=== PATIENT | male | born 1980 | race Caucasian/White ===

== ENCOUNTER 2017-11-02 13:37 | Emergency (ER) | payer OTHER ==
[2017-11-02 14:00] VITALS: RESP 18; TEMP 97.7
[2017-11-02 14:42] LABS: Basophils # (A) 0.1 k/uL (0-0.2); Basophils % (A) 1 %; Eosinophils # (A) 0.3 k/uL (0-0.7); Eosinophils % (A) 3 %; HCT 43.5 % (39.0-53.0); HGB 14.8 gm/dL (13.0-17.5); Lymphocytes # (A) 1.3 k/uL (1.0-4.8); Lymphocytes % (A) 14 %; MCH 29.8 pg (25.0-35.0); MCHC 33.9 g/dL (31.0-37.0); MCV 87.9 fL (80.0-100.0); Mean Platelet Volume 7.7; Monocytes # (A) 0.3 k/uL (0-1.0); Monocytes % (A) 4 %; Neutrophils # (A) 6.8 k/uL (1.3-7.7); Neutrophils % (A) 77 %; Platelet Count 250 k/uL (150-450); RBC 4.95 m/uL (4.30-5.90); RDW 13.5 % (11.5-15.5); WBC 8.9 k/uL (3.8-10.6)
[2017-11-02 14:53] LABS: ALT 43 U/L (21-72); AST 39 U/L (17-59); Alkaline Phosphatase 71 U/L (38-126); Amylase 55 U/L (30-110); Anion Gap 13 mmol/L; Blood Urea Nitrogen 16 mg/dL (9-20); Calcium 9.4 mg/dL (8.4-10.2); Carbon Dioxide 25 mmol/L (22-30); Chloride 106 mmol/L (98-107); Glucose 103 mg/dL (74-99); Lipase 81 U/L (23-300); Potassium 4.3 mmol/L (3.5-5.1); Sodium 144 mmol/L (137-145); Total Bilirubin 0.4 mg/dL (0.2-1.3); Total Protein 7.1 g/dL (6.3-8.2)
[2017-11-02] MEDS ORDERED: METOCLOPRAMIDE 5 MG/ML 2 ML VIAL IVP STA (16:03)
[2017-11-02] MEDS ORDERED: KETOROLAC 30 MG/ML 1 ML VIAL IVP STA (16:03)
[2017-11-02] MEDS ORDERED: diphenhydrAMINE 50 MG/ML 1 ML VIAL IVP STA (16:03)
[2017-11-02] MEDS ORDERED: SODIUM CHLORIDE 0.9% 1,000 ML IV STA (16:03)
--- NOTE | 2017-11-02 16:21 | ED ---
General Adult HPI - General Chief complaint: Nausea/Vomiting/Diarrhea Stated complaint: Migraine Time Seen by Provider: 11/02/17 15:49 Source: patient, RN notes reviewed Mode of arrival: ambulatory Limitations: no limitations - History of Present Illness Initial comments: Patient 37-year-old male significant past medical history for migraines, presents emergency room today with a chief complaint of a migraine headache that started this morning. He does not that this migraines located upfront. He states there is some radiation to the back of his head and also states there is photosensitivity. There is a symptoms of nausea vomiting. He states his symptoms are all consistent with migraines is had in the past but this is more intense. Patient denies any new symptoms associated with this migraine. He denies any other complaints at this time. Patient denies any recent fever, chills, shortness of breath, chest pain, back pain, abdominal pain, dysuria or hematuria, constipation or diarrhea, visual changes, or any other complaints. - Related Data Home Medications Medication Instructions Recorded Confirmed Aspirin EC [Ecotrin] 325 mg PO DAILY PRN 11/02/17 11/02/17 Multivitamins, Thera [Multivitamin 1 tab PO DAILY 11/02/17 11/02/17 (formulary)] Allergies Allergy/AdvReac Type Severity Reaction Status Date / Time shellfish derived Allergy Swelling Verified 11/02/17 15:59 Review of Systems ROS Statement: Those systems with pertinent positive or pertinent negative responses have been documented in the HPI. ROS Other: All systems not noted in ROS Statement are negative. Past Medical History Past Medical History: Hyperlipidemia, Hypertension, Myocardial Infarction ([place]) Additional Past Medical History / Comment(s): hypoglycemia, diverticulitis, patient states he had an NV at 24 and one at 30 History of Any Multi-Drug Resistant Organisms: None Reported Past Surgical History: No Surgical Hx Reported Past Psychological History: Bipolar, Schizoaffective Disorder Smoking Status: Never smoker Past Alcohol Use History: None Reported Past Drug Use History: None Reported General Exam - General Exam Comments Initial Comments: General: The patient is awake and alert, in no distress, and does not appear acutely ill. Eye: Pupils are equal, round and reactive to light, extra-ocular movements are intact. No nystagmus. There is normal conjunctiva bilaterally. No signs of icterus. Ears, nose, mouth and throat: There are moist mucous membranes and no oral lesions. Neck: The neck is supple, there is no tenderness or JVD. Cardiovascular: There is a regular rate and rhythm. No murmur, rub or gallop is appreciated. Respiratory: Lungs are clear to auscultation, respirations are non-labored, breath sounds are equal. No wheezes, stridor, rales, or rhonchi. Gastrointestinal: Soft, non-distended, non-tender abdomen without masses or organomegaly noted. There is no rebound or guarding present. No CVA tenderness. Musculoskeletal: Normal ROM, no tenderness. Strength 5/5. Sensation intact. Pulses equal bilaterally 2+. Neurological: A&O x 3. CN II-XII intact, There are no obvious motor or sensory deficits. Coordination appears grossly intact. Speech is normal. Skin: Skin is warm and dry and no rashes or lesions are noted. Psychiatric: Cooperative, appropriate mood & affect, normal judgment. Limitations: no limitations Course Vital Signs 11/02/17 13:54 Temperature 97.7 F Pulse Rate 84 Respiratory 18 Rate Blood Pressure 133/88 O2 Sat by Pulse 99 Oximetry Medical Decision Making - Medical Decision Making Patient's reexamined at this time shows no signs of distress. Sleeping. Did wake the patient up he states his headache is completely gone is feeling much better patient will be discharged home is advised to use ibuprofen for a rebound headache. - Lab Data Result diagrams: 11/02/17 14:15 11/02/17 14:15 Lab Results 11/02/17 11/02/17 Range/Units 14:15 14:15 WBC 8.9 (3.8-10.6) k/uL RBC 4.95 (4.30-5.90) m/uL Hgb 14.8 (13.0-17.5) gm/dL Hct 43.5 (39.0-53.0) % MCV 87.9 (80.0-100.0) fL MCH 29.8 (25.0-35.0) pg MCHC 33.9 (31.0-37.0) g/dL RDW 13.5 (11.5-15.5) % Plt Count 250 (150-450) k/uL Neutrophils % 77 % Lymphocytes % 14 % Monocytes % 4 % Eosinophils % 3 % Basophils % 1 % Neutrophils # 6.8 (1.3-7.7) k/uL Lymphocytes # 1.3 (1.0-4.8) k/uL Monocytes # 0.3 (0-1.0) k/uL Eosinophils # 0.3 (0-0.7) k/uL Basophils # 0.1 (0-0.2) k/uL Sodium 144 (137-145) mmol/L Potassium 4.3 (3.5-5.1) mmol/L Chloride 106 (98-107) mmol/L Carbon Dioxide 25 (22-30) mmol/L Anion Gap 13 mmol/L BUN 16 (9-20) mg/dL Creatinine 0.90 (0.66-1.25) mg/dL Est GFR (CKD-EPI)AfAm >90 (>60 ml/min/1.73 sqM) Est GFR (CKD-EPI)NonAf >90 (>60 ml/min/1.73 sqM) Glucose 103 H (74-99) mg/dL Calcium 9.4 (8.4-10.2) mg/dL Total Bilirubin 0.4 (0.2-1.3) mg/dL AST 39 (17-59) U/L ALT 43 (21-72) U/L Alkaline Phosphatase 71 (38-126) U/L Total Protein 7.1 (6.3-8.2) g/dL Albumin 4.0 (3.5-5.0) g/dL Amylase 55 (30-110) U/L Lipase 81 (23-300) U/L Disposition Clinical Impression: Migraine Disposition: HOME SELF-CARE Condition: Good Instructions: Migraine Headache (ED) Additional Instructions: Please use ibuprofen for any rebound headaches. Please follow-up with family doctor in the next 2 days of symptoms have not improved. Please return to emergency room if the symptoms increase or worsen or for any other concerns. Referrals: None,Stated [Primary Care Provider] - 1-2 days Time of Disposition: 17:27
[2017-11-02 17:43] VITALS: BP 111/60; PULSE 60
== END 2017-11-02 17:47 | disposition home or self-care (01) ==
LOC: EC 13:37
DX: G43.909 Migraine, unspecified, not intractable, without status migrainosus (principal); Z79.899 Other long term (current) drug therapy; Z91.013 Allergy to seafood
CPT/HCPCS: 36415; 93005; 80053; 82150; 83690; 85025; 99284; 96374; 96375 ×2; 96361; J1200; J2765; J1885

== ENCOUNTER 2018-05-23 13:50 | Emergency (ER) | payer BC ==
[2018-05-23] MEDS ORDERED: SODIUM CHLORIDE 0.9% 1,000 ML IV STA (14:31)
[2018-05-23] MEDS ORDERED: METOCLOPRAMIDE 5 MG/ML 2 ML VIAL IVP STA (14:31)
[2018-05-23] MEDS ORDERED: diphenhydrAMINE 50 MG/ML 1 ML VIAL IVP STA (14:31)
--- NOTE | 2018-05-23 15:16 | CT ---
EXAMINATION TYPE: CT brain wo con DATE OF EXAM: 05/23/2018 COMPARISON: None INDICATION: Migrane today DLP: 1215.4 mGycm, Automated exposure control for dose reduction was used. CONTRAST: None CT of the brain is performed utilizing 3 mm thick sections through the posterior fossa and 3 mm thick sections through the remaining calvarium. Study is performed within 24 hours of arrival to the hosp [facility]. No abnormal hyperdensity is present to suggest an acute intracranial hemorrhage. No mass lesion is evident. No acute infarcts are evident. Ventricles and sulci are appropriate for the patient age. Mucosal thickening is within the right maxillary sinus and within some right ethmoid air cells. No lozada spicious air-fluid levels are present. Remaining paranasal sinuses mastoid air cells are clear. IMPRESSIONS: 1. No acute intracranial process. 2. Mild paranasal sinus mucosal thickening
--- NOTE | 2018-05-23 15:31 | ED ---
General Adult HPI - General Chief complaint: Headache Stated complaint: Migraine, Nausea Time Seen by Provider: 05/23/18 14:24 Source: patient, RN notes reviewed, old records reviewed Mode of arrival: ambulatory Limitations: no limitations - History of Present Illness Initial comments: 38-year-old male presents for evaluation of headache. Patient woke this morning with bilateral occipital and frontal headache. Patient does have headache history, she gets headaches that some frequency although not as severe as today's headache. Headache has been present for 2 hours at the time of my evaluation. He also reports nausea and vomiting as well as photophobia. Denies focal numbness or weakness. Patient has no family history of brain aneurysm. He is otherwise healthy. - Related Data Home Medications Medication Instructions Recorded Confirmed Ibuprofen [Motrin Ib] 600 mg PO Q6H PRN 05/23/18 05/23/18 Allergies Allergy/AdvReac Type Severity Reaction Status Date / Time shellfish derived Allergy Swelling Verified 05/23/18 14:37 Review of Systems ROS Statement: Those systems with pertinent positive or pertinent negative responses have been documented in the HPI. ROS Other: All systems not noted in ROS Statement are negative. Past Medical History Past Medical History: Hyperlipidemia, Hypertension, Myocardial Infarction ([place]) Additional Past Medical History / Comment(s): hypoglycemia, diverticulitis, patient states he had an ME at 24 and one at 30 History of Any Multi-Drug Resistant Organisms: None Reported Past Surgical History: No Surgical Hx Reported Past Psychological History: Bipolar, Schizoaffective Disorder Smoking Status: Never smoker Past Alcohol Use History: None Reported Past Drug Use History: None Reported General Exam Limitations: no limitations General appearance: alert, in no apparent distress Head exam: Present: atraumatic, normocephalic Eye exam: Present: normal appearance, PERRL, EOMI ENT exam: Present: normal exam Neck exam: Present: normal inspection. Absent: tenderness, meningismus Respiratory exam: Present: normal lung sounds bilaterally. Absent: respiratory distress, wheezes Cardiovascular Exam: Present: regular rate, normal rhythm GI/Abdominal exam: Present: soft. Absent: distended, tenderness, guarding Extremities exam: Present: normal inspection, full ROM. Absent: normal capillary refill Neurological exam: Present: alert, oriented X3, CN II-XII intact. Absent: motor sensory deficit Psychiatric exam: Present: normal affect, normal mood Skin exam: Present: warm, dry, intact. Absent: cyanosis, diaphoretic Course Vital Signs 05/23/18 13:53 Temperature 98.3 F Pulse Rate 69 Respiratory 16 Rate Blood Pressure 136/79 O2 Sat by Pulse 97 Oximetry - Reevaluation(s) Reevaluation #1: 05/23/18 15:30 Patient reevaluated after medical treatment headache, is feeling much better. Medical Decision Making - Medical Decision Making 38-year-old male with 2 hour history of headache. Patient woke with his symptoms, states this is more severe than his typical headache. Head CT is obtained which is negative for intracranial hemorrhage or mass effect. Patient reevaluated after IV fluids, Reglan, and Benadryl, he is feeling much better. Patient is eager for discharge. Disposition Clinical Impression: Headache Disposition: HOME SELF-CARE Condition: Good Instructions: Acute Headache (ED) Is patient prescribed a controlled substance at d/c from ED?: No Referrals: None,Stated [Primary Care Provider] - 1-2 days Vincent Montalvo MD [STAFF PHYSICIAN] - 1-2 days Time of Disposition: 16:02
[2018-05-23 16:29] VITALS: BP 125/92; PULSE 57; RESP 18; TEMP 98.2
== END 2018-05-23 16:28 | disposition home or self-care (01) ==
LOC: EC 13:50
DX: R51 Headache (principal); R11.2 Nausea with vomiting, unspecified; H53.149 Visual discomfort, unspecified; Z91.013 Allergy to seafood
CPT/HCPCS: 70450; 99284; 96374; 96375; 96361; J1200; J2765

== ENCOUNTER 2018-08-02 04:35 | Inpatient (IN) | payer BC ==
[2018-08-02] MEDS ORDERED: VANCOMYCIN IV PER PHARMACY 1 EACH MISC MISCELLANE PRN (05:02)
[2018-08-02] MEDS ORDERED: CLINDAMYCIN 900 MG in DEXTROSE 5% IN WATER 50 ML IVPB STA ×2 (05:05)
[2018-08-02] MEDS ORDERED: PIPERACILLIN-TAZOBACTAM 3.375 GM in SODIUM CHLORIDE 0.9% 100 ML IVPB STA (05:05)
[2018-08-02] MEDS ORDERED: VANCOMYCIN 2,000 MG in SODIUM CHLORIDE 0.9% 500 ML 500 ML IVPB STA (05:06)
[2018-08-02] MEDS: SODIUM CHLORIDE 0.9% 500 ML 500 ML IV SCH ×2 (05:26→06:21)
[2018-08-02 05:45] LABS: Basophils % (A) 0 %; Eosinophils # (A) 0.5 k/uL (0-0.7); Eosinophils % (A) 5 %; HCT 39.7 % (39.0-53.0); HGB 13.2 gm/dL (13.0-17.5); Lymphocytes # (A) 1.8 k/uL (1.0-4.8); Lymphocytes % (A) 18 %; MCH 29.6 pg (25.0-35.0); MCHC 33.2 g/dL (31.0-37.0); MCV 89.2 fL (80.0-100.0); Mean Platelet Volume 7.3; Monocytes # (A) 0.5 k/uL (0-1.0); Monocytes % (A) 5 %; Neutrophils # (A) 6.9 k/uL (1.3-7.7); Neutrophils % (A) 69 %; Platelet Count 232 k/uL (150-450); RBC 4.45 m/uL (4.30-5.90); RDW 13.3 % (11.5-15.5); WBC 10.1 k/uL (3.8-10.6)
[2018-08-02 05:54] LABS: INR 0.9 (<1.2); Partial Thromboplastin Time 24.8 sec (22.0-30.0); Prothrombin Time 9.8 sec (9.0-12.0)
[2018-08-02 06:01] LABS: ALT 36 U/L (21-72); AST 46 U/L (17-59); Albumin 3.8 g/dL (3.5-5.0); Alkaline Phosphatase 68 U/L (38-126); Anion Gap 9 mmol/L; Blood Urea Nitrogen 16 mg/dL (9-20); Calcium 8.9 mg/dL (8.4-10.2); Carbon Dioxide 21 mmol/L (22-30); Chloride 109 mmol/L (98-107); Glucose 88 mg/dL (74-99); Sodium 139 mmol/L (137-145); Total Bilirubin 0.9 mg/dL (0.2-1.3); Total Protein 7.3 g/dL (6.3-8.2)
[2018-08-02 06:10] LABS: Potassium 5.2 mmol/L (3.5-5.1)
--- NOTE | 2018-08-02 06:29 | CT ---
EXAM: CT Pelvis With Intravenous Contrast. CLINICAL HISTORY: Reason: Penile trauma/infection TECHNIQUE: Axial computed tomography images of the pelvis with intravenous contrast. CTDI is 28.4 mGy and DLP is 1652 mGy-cm. This CT exam was performed using one or more of the following dose reduction techniques: automated exposure control, adjustment of the mA and/or kV according to patient size, and/or use of iterative reconstruction technique. COMPARISON: No relevant prior studies available. FINDINGS: Bowel: Unremarkable. No obstruction. No mucosal thickening. Appendix: No findings to suggest acute appendicitis. Bladder: Unremarkable. No mass. Reproductive: Infiltrative changes seen regional to the base of the penis, anterior perineum and scrotum, with subcutaneous fat stranding and mild soft tissue swelling. No soft tissue gas. No loculated fluid collection. Lymph nodes: Unremarkable. No enlarged lymph nodes. Vasculature: Unremarkable. No distal aortic aneurysm. Bones: No acute fracture. IMPRESSION: Soft tissue swelling and subcutaneous fat stranding involving the base of the penis, anterior perineum and scrotum, without evidence of soft tissue gas or underlying loculated fluid collection. Given history of trauma, findings could represent soft tissue contusion. Alternatively this may represent an infectious cellulitis.
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
[2018-08-02 06:51] LABS: Appearance,Urine Clear (Clear); Bilirubin,Urine Negative (Negative); Blood,Urine Negative (Negative); Color,Urine Yellow; Glucose,Urine (UA) Negative (Negative); Ketones,Urine Negative (Negative); Leukocyte Esterase,Urine Negative (Negative); Nitrite,Urine Negative (Negative); Protein,Urine Trace (Negative); Urobilinogen,Urine <2.0 mg/dL (<2.0)
[2018-08-02 06:56] LABS: Specific Gravity,Urine >1.050 (1.001-1.035)
--- NOTE | 2018-08-02 12:04 | P.HPIM ---
History of Present Illness Chief Complaint: swelling around his penis and scrotum this is a 38-year-old male no past medical history who complained of swelling of his scrotum and around his base of the penis. 2 days prior to admission he sustained injury to his penis while having sex with his . The injury was in the form of small abrasions along the base of the penis and surrounding skin. There is no any significant laceration or bleeding. On the day of the admission 2 days after sustaining these injuries the area became warm erythematosus, tender and the skin and the scrotal area swell. He denies any fever or chills. There was no any darkening or sloughing of the skin there was no blistering. There was no any purulence. There is no any penile discharge In the emergency department he was found to be afebrile with stable vital signs. Vital cell count was normal. CT of the pelvis showed some soft tissue swelling in the scrotal area consistent with contusion less likely cellulitis. Patient was started on broad-spectrum antibiotic and admitted as a working diagnosis of cellulitis. He was evaluated by urology service and they felt that he should stay here overnight for antibiotics. Currently looks like that he is erythema and swelling has been improving rapidly with antibiotics and is much better comparing to last night.currently he does show some swelling in the area but there is no any tenderness erythema is minimal and there is no nasal discharge or blistering. Review of Systems Constitutional: Patient reports no fever, no chills, no weight changes, no change in appetite Eyes: Patient reports no double vision, no visual changes ENT: Patient reports no rhinorrhea, no post nasal drip, no sore throat Cardiovascular: Patient reports no chest, no edema, no palpitations, no syncope , no orthopnea, no paroxysmal nocturnal dyspnea. Respiratory: Patient reports no dyspnea, no cough, no wheeze Gastrointestinal: Patient reports no nausea, no vomiting, no constipation, no diarrhea Genitourinary: Patient reports no dysuria, no urinary frequency, no hematuria. Musculoskeletal: Patient reports no unusual joint pain, no joint swelling or weakness. Patient reports no muscular pain. Psychiatric: Patient reports no changes in mood, no sleeping problems. Patient reports no changes in memory. Endocrine: Patient reports no thirst, no polyuria, no cold intolerance, no heat intolerance. Neurological: Patient reports no unusual paresthesias, no seizures, no paresis , no paralysis, no facila droop, no headache. Heme/Lymphatic: Patient reports no easy bruising, no bleeding tendency, no lymphadenopathy. Allergic/ Immunologic: Patient reports no recent allergic reactions or immunologic history. Skin: Patient reports no rashes or unusual lesions. Past Medical History Past Medical History: Hyperlipidemia, Hypertension, Myocardial Infarction ([place]) Additional Past Medical History / Comment(s): hypoglycemia, diverticulitis, patient states he had an [place] at 24 and one at 30 History of Any Multi-Drug Resistant Organisms: None Reported Past Surgical History: No Surgical Hx Reported Past Psychological History: Bipolar, Schizoaffective Disorder, Schizophrenia Smoking Status: Never smoker Past Alcohol Use History: None Reported Past Drug Use History: None Reported Medications and Allergies Home Medications Medication Instructions Recorded Confirmed Type Ibuprofen [Motrin Ib] 600 mg PO Q6H PRN 05/23/18 08/02/18 History Allergies Allergy/AdvReac Type Severity Reaction Status Date / Time shellfish derived Allergy Swelling Verified 08/02/18 08:17 Physical Exam Vitals: Vital Signs Temp Pulse Resp BP Pulse Ox 08/02/18 09:51 98 F 71 16 126/88 98 08/02/18 08:14 18 08/02/18 04:45 98.7 F 78 18 139/92 97 Intake and Output 08/01/18 08/02/18 08/02/18 22:59 06:59 14:59 Other: Weight 126.099 kg Vital Signs: I have reviewed the vital signs. GENERAL: no apparent distress, cooperative, up in bed feeling comfortable Eyes: PERRL, extraoculry movements intact, clear conjunctiva Head: : Atraumatic external nose and ears, oropharyngeal mucosa is moist without lesions or exudates Neck: Symmetric, trachea midline, No thyromegaly, no masses or neck vain pulsation, no neck rigidity CVS: +S1/S2, No murmurs or gallops. Peripheral pulses 2+ and equal in all extremities. RESP: Unlabored respiratory effort. Clear to auscultation bilaterally. Abdomen: Bowel sounds present in all 4 quadrants, Soft to palpation, Nontender/ Nondistended, No hepatosplenomegaly, no hernias or masses, no CVA tnderness Genitourinary: Penis is not swallen, no erythema or deformities. Skin has few dried out small abrasions in the base but overall without blisters or gangrenous changes or discoloration. Skin around base of penis shows mild erythema extending about 1 cm rostrally, again no necrotic areas no tendrness or warmth. Scrotal area skin is without erythema or blisters or necrotic chnages. Scrotum per se is edematous bu no warmth or significant tenderness, no crepitations, no bruising. No regional LAD. No penile discharge Musculoskeletal: Extremities w/o deformity, No cyanosis or clubbing, no joint swelling Results CBC & Chem 7: 08/02/18 05:25 08/02/18 05:25 Labs: Abnormal Lab Results - Last 24 Hours (Table) 08/02/18 08/02/18 Range/Units 05:25 06:20 Potassium 5.2 H (3.5-5.1) mmol/L Chloride 109 H (98-107) mmol/L Carbon Dioxide 21 L (22-30) mmol/L Ur Specific [place] >1.050 H (1.001-1.035) Urine Protein Trace H (Negative) Microbiology - Last 24 Hours (Table) 08/02/18 06:20 Urine Culture - Preliminary Urine,Voided Assessment and Plan Assessment: 1. Penile trauma 2. Soft tissue contusion 3. Possible cellulitis 4. Mild Hyperkalemia at 5.2 Area seems quite improved from what described before. Pt is feeling much better and pain improved. Given rapid spread of redness via small abrasion and absence of purulence this could represent streptococcal infection. Pt is not diabetic and its low risk for Pseudomonas. There is no purulence or drainage. Symptoms are improving rapidly with antibiotics. Plan: Change antibiotics to Cefazolin Urology consalt Local care Elevate scrotum Cooling packs PRN Pain ctrl Monitor for any difficulties with urination Will reevaluate
[2018-08-02 12:30] LABS: Anion Gap 7 mmol/L; Blood Urea Nitrogen 13 mg/dL (9-20); Calcium 8.5 mg/dL (8.4-10.2); Carbon Dioxide 24 mmol/L (22-30); Chloride 109 mmol/L (98-107); Glucose 91 mg/dL (74-99); Potassium 4.4 mmol/L (3.5-5.1); Sodium 140 mmol/L (137-145)
[2018-08-02] MEDS ORDERED: CLINDAMYCIN 900 MG in DEXTROSE 5% IN WATER 50 ML IVPB SCH ×2 (13:00)
[2018-08-02] MEDS ORDERED: PIPERACILLIN-TAZOBACTAM 3.375 GM in SODIUM CHLORIDE 0.9% 100 ML IVPB SCH (16:00)
[2018-08-02] MEDS: ceFAZolin IN SWFI 2 GM/20 ML SYRINGE IVP SCH (16:53)
[2018-08-02] MEDS ORDERED: VANCOMYCIN 2,250 MG in SODIUM CHLORIDE 0.9% 500 ML 500 ML IVPB SCH (18:00)
--- NOTE | 2018-08-02 22:20 | P.GSCN ---
History of Present Illness Consult date: 08/02/18 Reason for Consult: Penoscrotal cellulitis Requesting physician: Suri Lopez History of present illness: The patient is a 38-year-old white male who was wrestling with his on 07/29. She grabbed his penis, and he subsequently noted that he was bleeding from a laceration at the right penile base. He applied antibiotic cream throughout the week. However, yesterday he noted significant penoscrotal swelling and presented to the emergency room. A computed tomography scan shows soft tissue swelling and subcutaneous fat stranding within the penoscrotal region. No gas or fluid collection was seen. He is admitted for IV antibiotics. Review of Systems - Constitutional Denies chills, Denies fever - Cardiovascular Denies chest pain - Respiratory Denies dyspnea - Gastrointestinal Denies nausea, Denies vomiting - Genitourinary Denies dysuria, Denies hematuria Past Medical History Past Medical History: Hyperlipidemia, Hypertension, Myocardial Infarction ([place]) Additional Past Medical History / Comment(s): hypoglycemia, diverticulitis, patient states he had an [place] at 24 and one at 30 History of Any Multi-Drug Resistant Organisms: None Reported Past Surgical History: No Surgical Hx Reported Past Psychological History: Bipolar, Schizoaffective Disorder, Schizophrenia Smoking Status: Never smoker Past Alcohol Use History: None Reported Past Drug Use History: None Reported Medications and Allergies Home Medications Medication Instructions Recorded Confirmed Type Ibuprofen [Motrin Ib] 600 mg PO Q6H PRN 05/23/18 08/02/18 History Allergies Allergy/AdvReac Type Severity Reaction Status Date / Time shellfish derived Allergy Swelling Verified 08/02/18 08:17 Surgical - Exam Vital Signs Temp Pulse Resp BP Pulse Ox 98.7 F 78 18 139/92 97 08/02/18 04:45 08/02/18 04:45 08/02/18 04:45 08/02/18 04:45 08/02/18 04:45 - General well developed, well nourished, no distress - Respiratory normal respiratory effort - Abdomen Abdomen: soft, non tender, no guarding, no rigid, no rebound - Genitourinary Moderate penoscrotal edema is noted. The testes are palpably normal. The laceration at the right penile base is healing, with no wound separation or drainage. Patchy spots of what appears to be ecchymosis are noted on the scrotum, penis, and infrapubic region. There is no crepitus or fluctuance. Results - Labs 08/02/18 05:25 08/02/18 11:57 Abnormal Lab Results - Last 24 Hours (Table) 08/02/18 08/02/18 Range/Units 05:25 06:20 Potassium 5.2 H (3.5-5.1) mmol/L Chloride 109 H (98-107) mmol/L Carbon Dioxide 21 L (22-30) mmol/L Ur Specific [place] >1.050 H (1.001-1.035) Urine Protein Trace H (Negative) Microbiology - Last 24 Hours (Table) 08/02/18 06:20 Urine Culture - Preliminary Urine,Voided Diabetes panel 08/02/18 Range/Units 05:25 Sodium 139 (137-145) mmol/L Potassium 5.2 H (3.5-5.1) mmol/L Chloride 109 H (98-107) mmol/L Carbon Dioxide 21 L (22-30) mmol/L BUN 16 (9-20) mg/dL Creatinine 1.06 (0.66-1.25) mg/dL Glucose 88 (74-99) mg/dL Calcium 8.9 (8.4-10.2) mg/dL AST 46 (17-59) U/L ALT 36 (21-72) U/L Alkaline Phosphatase 68 (38-126) U/L Total Protein 7.3 (6.3-8.2) g/dL Albumin 3.8 (3.5-5.0) g/dL Calcium panel 08/02/18 Range/Units 05:25 Calcium 8.9 (8.4-10.2) mg/dL Albumin 3.8 (3.5-5.0) g/dL Pituitary panel 08/02/18 Range/Units 05:25 Sodium 139 (137-145) mmol/L Potassium 5.2 H (3.5-5.1) mmol/L Chloride 109 H (98-107) mmol/L Carbon Dioxide 21 L (22-30) mmol/L BUN 16 (9-20) mg/dL Creatinine 1.06 (0.66-1.25) mg/dL Glucose 88 (74-99) mg/dL Calcium 8.9 (8.4-10.2) mg/dL Adrenal panel 08/02/18 Range/Units 05:25 Sodium 139 (137-145) mmol/L Potassium 5.2 H (3.5-5.1) mmol/L Chloride 109 H (98-107) mmol/L Carbon Dioxide 21 L (22-30) mmol/L BUN 16 (9-20) mg/dL Creatinine 1.06 (0.66-1.25) mg/dL Glucose 88 (74-99) mg/dL Calcium 8.9 (8.4-10.2) mg/dL Total Bilirubin 0.9 (0.2-1.3) mg/dL AST 46 (17-59) U/L ALT 36 (21-72) U/L Alkaline Phosphatase 68 (38-126) U/L Total Protein 7.3 (6.3-8.2) g/dL Albumin 3.8 (3.5-5.0) g/dL - Imaging CT scan - pelvis: report reviewed, image reviewed Assessment and Plan (1) Penile cellulitis Current Visit: Yes Status: Acute Code(s): N48.22 - CELLULITIS OF CORPUS CAVERNOSUM AND PENIS SNOMED Code(s): 13273106 Plan: I agree with hospitalization for broad-spectrum IV antibiotics. There is no need for local wound care. 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 The patient has received vancomycin, clindamycin, and Zosyn, but these have been discontinued and he is scheduled to receive Ancef moving forward. I am concerned that this may not offer adequate broad-spectrum coverage but ultimately will defer this decision to the primary medical service. I did advise the patient to notify the nursing staff immediately if he notes any worsening of his condition. Time with Patient: Greater than 30
[2018-08-03 00:10] VITALS: RESP 18
[2018-08-03] MEDS: ceFAZolin IN SWFI 2 GM/20 ML SYRINGE IVP SCH ×3 (00:52→15:11)
[2018-08-03 06:09] VITALS: BP 113/66; PULSE 77; TEMP 97.5
--- NOTE | 2018-08-03 11:53 | P.DS ---
Providers Date of admission: 08/02/18 06:49 Expected date of discharge: 08/03/18 Attending physician: Suri Lopez MD Consults: 08/02/18 08:44 Consult Physician Routine Consulting Provider: Carlos Churchill Consult Reason/Comments: penile trauma Do you want consulting provider notified?: Yes Primary care physician: Stated None Hospital Course: 38-year-old male no past medical history who presented to the ER for swelling of his scrotum and around his base of the penis. 2 days prior to admission he sustained injury to his penis while having sex with his . The injury was in the form of small abrasions along the base of the penis and surrounding skin. There is no any significant laceration or bleeding. On the day of the admission 2 days after sustaining these injuries the area became warm, red and tender. He denies any fever or chills. There was no any darkening or sloughing of the skin there was no blistering. There was no any purulence. There is no any penile discharge. In the emergency department he was found to be afebrile with stable vital signs. White cell count was normal. CT of the pelvis showed some soft tissue swelling in the scrotal area, consistent with contusion less likely cellulitis. Patient was started on broad-spectrum antibiotic and admitted as a working diagnosis of cellulitis. He was evaluated by urology service who didn't feel he needed any surgical intervention. When I evaluated him this am the area looks much better, no pain, swelling has gone down. He has been on ancef since yesterday. No overnight fevers. He will be discharged home in stable condition. He'll be prescribed some Keflex for a few more days. He was instructed to keep the area dry and clean. He was also told to follow with his primary care physician within few days after discharge. Plan - Discharge Summary New Discharge Prescriptions: New Cephalexin [Keflex] 500 mg PO Q6HR 3 Days #12 cap Continue Ibuprofen [Motrin Ib] 600 mg PO Q6H PRN PRN Reason: Pain Discharge Medication List Ibuprofen [Motrin Ib] 600 mg PO Q6H PRN 05/23/18 [History] Cephalexin [Keflex] 500 mg PO Q6HR 3 Days #12 cap 08/03/18 [Rx] Follow up Appointment(s)/Referral(s): None,Stated [Primary Care Provider] - 1-2 days
--- NOTE | 2018-08-03 12:40 | P.PN ---
Progress Note - Text Progress Note Date: 08/03/18 Mr. Vanegas feels better today. He remains afebrile with stable vital signs. Scrotal edema is diminished. The penoscrotal cutaneous lesions have dried and covered with small scabs. Minimal infrapubic erythema is noted. There is no crepitus or fluctuance. Moderate penile edema persists. It appears that Mr. Vanegas will be discharged home today on Keflex. I advised him to contact me immediately if he notes fever, crepitus, or worsening of his condition. He will otherwise follow up with me in approximately 1 week.
[2018-08-03 13:33] LABS: Anion Gap 8 mmol/L; Blood Urea Nitrogen 12 mg/dL (9-20); Carbon Dioxide 26 mmol/L (22-30); Chloride 106 mmol/L (98-107); Glucose 86 mg/dL (74-99); Potassium 4.8 mmol/L (3.5-5.1); Sodium 140 mmol/L (137-145)
== END 2018-08-03 15:53 | disposition home or self-care (01) | DRG 728 ==
LOC: EC 04:35 → 4MS4W 06:49
PROVIDERS: ADMIT Internal Medicine; ATTEND Internal Medicine
DX: N48.22 Cellulitis of corpus cavernosum and penis (principal); E87.5 Hyperkalemia; F25.0 Schizoaffective disorder, bipolar type; S30.812A Abrasion of penis, initial encounter; S30.22XA Contusion of scrotum and testes, initial encounter; I25.2 Old myocardial infarction; E78.5 Hyperlipidemia, unspecified; I10 Essential (primary) hypertension; Z91.013 Allergy to seafood; Z86.39 Personal history of other endocrine, nutritional and metabolic disease; Z87.19 Personal history of other diseases of the digestive system
CPT/HCPCS: 36415; 72193; 80048; 80053; 81003; 83605; 85025; 85610; 85652; 85730; 87040; 87086; 93005; 96361; 96365; 96366; 96368; 99285

== ENCOUNTER 2018-12-31 09:28 | Emergency (ER) | payer BC ==
[2018-12-31] MEDS ORDERED: KETOROLAC 30 MG/ML 1 ML VIAL IM STA (10:07)
--- NOTE | 2018-12-31 10:09 | ED ---
General Adult HPI - General Chief complaint: ENT Stated complaint: ENT Time Seen by Provider: 12/31/18 09:35 Source: patient Mode of arrival: ambulatory Limitations: no limitations - History of Present Illness Initial comments: Dictation was produced using [employer] dictation software. please excuse any grammatical, word or spelling errors. Chief Complaint: 38-year-old malesignificant comorbidities presents with sore throat and ear pain 2 days. History of Present Illness: Patient 38-year-old male presents with sore throat and ear pain 4 days. Patient has had history of otitis media in the past. He states his girlfriend had had similar symptoms. Patient states that denies any nasal congestion, runny nose. Denies any cough. Reports ear pain that's worse with manipulation of air. Denies any hearing loss. The ROS documented in this emergency department record has been reviewed and confirmed by me. Those systems with pertinent positive or negative responses have been documented in the HPI. All other systems are other negative and/or noncontributory. PHYSICAL EXAM: General Impression: Alert and oriented x3, not in acute distress HEENT: Normocephalic atraumatic, extra-ocular movements intact, pupils equal and reactive to light bilaterally, mucous membranes moist, slightly erythematous enlarged tonsils however no exudates or ulcers, mild cerumen in the right external auditory canal Cardiovascular: Heart regular rate and rhythm, S1&S2 audible, no murmurs, rubs or gallops Chest: Lungs clear to auscultation bilaterally, no rhonchi, no wheeze, no rales Abdomen: Bowel sounds present, abdomen soft, non-tender, non-distended, no organomegaly Musculoskeletal: Pulses present and equal in all extremities, no peripheral edema Motor: no focal deficits noted Neurological: CN II-XII grossly intact, no focal motor or sensory deficits noted Skin: Intact with no visualized rashes Psych: Normal affect and mood ED course: 38-year-old male presents with chief complaint of earache and sore throat. Vital signs upon arrival are within acceptable limits.Patient is group A strep positive. Patient opted for 1 time Bicillin IM shot. Patient reevaluated found to be in stable medical condition. Patient clear for discharge. - Related Data Home Medications Medication Instructions Recorded Confirmed Phenol [Chloraseptic] 1 spray PO Q4H 12/31/18 12/31/18 Allergies Allergy/AdvReac Type Severity Reaction Status Date / Time shellfish derived Allergy Swelling Verified 12/31/18 09:48 Review of Systems ROS Statement: Those systems with pertinent positive or pertinent negative responses have been documented in the HPI. ROS Other: All systems not noted in ROS Statement are negative. Past Medical History Past Medical History: Hyperlipidemia, Hypertension, Myocardial Infarction ([place]) Additional Past Medical History / Comment(s): hypoglycemia, diverticulitis, patient states he had an [place] at 24 and one at 30 Last Myocardial Infarction Date:: 01/26/2015? History of Any Multi-Drug Resistant Organisms: None Reported Past Surgical History: No Surgical Hx Reported Past Psychological History: Bipolar, Schizoaffective Disorder, Schizophrenia Smoking Status: Never smoker Past Alcohol Use History: None Reported Past Drug Use History: None Reported General Exam Limitations: no limitations Course Vital Signs 12/31/18 09:31 Temperature 99.8 F H Pulse Rate 95 Respiratory 22 Rate Blood Pressure 132/80 O2 Sat by Pulse 100 Oximetry Medical Decision Making - Lab Data Lab Results 12/31/18 12/31/18 Range/Units 10:14 10:14 Influenza Type A RNA Not Detected (Not Detectd) Influenza Type B (PCR) Not Detected (Not Detectd) Group A Strep Rapid Positive A (Negative) Disposition Clinical Impression: Strep pharyngitis Disposition: HOME SELF-CARE Condition: Good Instructions (If sedation given, give patient instructions): Strep Throat (DC) Is patient prescribed a controlled substance at d/c from ED?: No Referrals: None,Stated [Primary Care Provider] - 1-2 days Time of Disposition: 10:54
[2018-12-31] MEDS ORDERED: PENICILLIN G BENZATHINE 1,200,000 UNIT/2 ML SYRINGE IM STA (10:53)
[2018-12-31 11:16] VITALS: BP 139/78; PULSE 89; RESP 18; TEMP 99
== END 2018-12-31 11:15 | disposition home or self-care (01) ==
LOC: EC 09:28
DX: J02.0 Streptococcal pharyngitis (principal); H92.09 Otalgia, unspecified ear; I25.2 Old myocardial infarction; Z86.69 Personal history of other diseases of the nervous system and sense organs; Z79.899 Other long term (current) drug therapy; Z91.013 Allergy to seafood
CPT/HCPCS: 87430; 87502; 99283; 96372 ×2; J0561; J1885

== ENCOUNTER 2019-03-02 14:58 | Emergency (ER) | payer BC ==
[2019-03-02 15:06] VITALS: BP 130/82; PULSE 86; RESP 16; TEMP 98.7
[2019-03-02] MEDS ORDERED: BUPIVACAINE (PF) 0.25% 30 ML VIAL SQ STA (15:28)
--- NOTE | 2019-03-02 15:39 | ED ---
ENT HPI - General Chief complaint: Dental/Oral Stated complaint: Infection Time Seen by Provider: 03/02/19 15:08 Source: patient Mode of arrival: ambulatory Limitations: no limitations - History of Present Illness Initial comments: Patient is a 38-year-old male presenting to emergency Department with a chief complaint of a broken tooth. Patient reports the incident occurred 4 days ago when he fractured tooth #4. Patient had not experienced any symptoms until yesterday when he developed sudden onset of pain. Patient denies any swelling or discharge in the region. Patient denies any fevers, nausea or vomiting. Patient does report a headache that had developed from the toothache. Patient reports difficulty eating and takes [id number] analgesics with minimal improvement. - Related Data Home Medications Medication Instructions Recorded Confirmed No Known Home Medications 03/02/19 03/02/19 Allergies Allergy/AdvReac Type Severity Reaction Status Date / Time shellfish derived Allergy Swelling Verified 03/02/19 15:25 Review of Systems ROS Statement: Those systems with pertinent positive or pertinent negative responses have been documented in the HPI. ROS Other: All systems not noted in ROS Statement are negative. Past Medical History Past Medical History: Hyperlipidemia, Hypertension, Myocardial Infarction ([place]) Additional Past Medical History / Comment(s): hypoglycemia, diverticulitis, patient states he had an [place] at 24 and one at 30 Last Myocardial Infarction Date:: 01/26/2015? History of Any Multi-Drug Resistant Organisms: None Reported Past Surgical History: No Surgical Hx Reported Past Psychological History: Bipolar, Schizoaffective Disorder, Schizophrenia Smoking Status: Never smoker Past Alcohol Use History: None Reported Past Drug Use History: None Reported General Exam Limitations: no limitations General appearance: alert, in no apparent distress Head exam: Present: atraumatic, normocephalic, normal inspection Eye exam: Present: normal appearance, PERRL, EOMI Pupils: Present: normal accommodation ENT exam: Present: normal exam, mucous membranes moist, TM's normal bilaterally, normal external ear exam. Absent: normal oropharynx (Fractured tooth #4. No surrounding edema noted. Mild erythema. No oral lesions or abscess noted.) Neck exam: Present: normal inspection, full ROM. Absent: lymphadenopathy Respiratory exam: Present: normal lung sounds bilaterally Cardiovascular Exam: Present: regular rate, normal rhythm, normal heart sounds Extremities exam: Present: normal inspection, full ROM Back exam: Present: normal inspection, full ROM Neurological exam: Present: alert, oriented X3 Psychiatric exam: Present: normal affect, normal mood Skin exam: Present: warm, intact, normal color Course Vital Signs 03/02/19 15:04 Temperature 98.7 F Pulse Rate 86 Respiratory 16 Rate Blood Pressure 130/82 O2 Sat by Pulse 99 Oximetry Medical Decision Making - Medical Decision Making Patient is a 38-year-old male presents emergency Department with a chief complaint of fracturing his tooth. Patient was given a dental block using Marcaine. Patient will be discharged with a Tylenol 3 starter pack and Augmentin until he is able to see a dentist. Strict return parameters were thoroughly discussed the patient was understanding and agreeable. Case discussed with physician. Disposition Clinical Impression: Fractured tooth Disposition: HOME SELF-CARE Condition: Stable Instructions (If sedation given, give patient instructions): Toothache (ED) Additional Instructions: Please take prescribed medication as directed. Please follow up with a dentist. Please return to emergency department if symptoms worsen. Is patient prescribed a controlled substance at d/c from ED?: No Referrals: None,Stated [Primary Care Provider] - 1-2 days Time of Disposition: 15:39
== END 2019-03-02 16:03 | disposition home or self-care (01) ==
LOC: EC 14:58
DX: S02.5XXA Fracture of tooth (traumatic), initial encounter for closed fracture (principal); Z91.013 Allergy to seafood; X58.XXXA Exposure to other specified factors, initial encounter
CPT/HCPCS: 64400; 99283

== ENCOUNTER 2019-08-31 15:44 | Emergency (ER) | payer BC ==
[2019-08-31 15:52] VITALS: RESP 18
[2019-08-31] MEDS ORDERED: ACETAMINOPHEN TAB 500 MG TAB PO STA (16:18)
[2019-08-31] MEDS ORDERED: IBUPROFEN 600 MG TAB PO STA (16:18)
--- NOTE | 2019-08-31 16:25 | ED ---
General Adult HPI - General Source: patient, RN notes reviewed Mode of arrival: ambulatory Limitations: no limitations <Case Thomas - Last Filed: 08/31/19 17:59> <Micah Dolan - Last Filed: 08/31/19 19:02> - General Chief complaint: Upper Respiratory Infection Stated complaint: Fever Time Seen by Provider: 08/31/19 16:10 - History of Present Illness Initial comments: Patient is a pleasant 39-year-old male presenting to emergency department with fever and multiple other complaints. Patient does have cough with occasionally greener brownish sputum. Patient does have sinus congestion. Patient states he is having some discomfort with cough only. Patient also has some discomfort of his right lower back. Patient did take yudith seltzer with mild improvement of symptoms yesterday. No Tylenol or Motrin today. No abdominal pain. (Case Thomas) - Related Data Previous Rx's Medication Instructions Recorded Amoxicillin/Potassium Clav 1 tab PO BID 3 Days #10 tab 03/02/19 [Augmentin 875-125 Tablet] Allergies Allergy/AdvReac Type Severity Reaction Status Date / Time shellfish derived Allergy Swelling Verified 08/31/19 15:49 Review of Systems ROS Other: All systems not noted in ROS Statement are negative. Constitutional: Reports: fever Eyes: Denies: eye pain ENT: Reports: ear pain, throat pain, congestion Respiratory: Reports: cough. Denies: dyspnea Cardiovascular: Denies: palpitations Endocrine: Reports: fatigue Gastrointestinal: Denies: abdominal pain, nausea, vomiting Genitourinary: Reports: dysuria (Occasional) Musculoskeletal: Reports: back pain (Some discomfort right lower back) Skin: Denies: rash Neurological: Denies: weakness, confusion Psychiatric: Denies: anxiety <Case Thomas - Last Filed: 08/31/19 17:59> ROS Other: All systems not noted in ROS Statement are negative. <Micah Dolan - Last Filed: 08/31/19 19:02> ROS Statement: Those systems with pertinent positive or pertinent negative responses have been documented in the HPI. Past Medical History Past Medical History: Hyperlipidemia, Hypertension, Myocardial Infarction ([place]) Additional Past Medical History / Comment(s): hypoglycemia, diverticulitis, patient states he had an CO at 24 and one at 30 Last Myocardial Infarction Date:: 01/26/2015? History of Any Multi-Drug Resistant Organisms: None Reported Past Surgical History: No Surgical Hx Reported Past Psychological History: Bipolar, Schizoaffective Disorder, Schizophrenia Smoking Status: Never smoker Past Alcohol Use History: None Reported Past Drug Use History: None Reported <Case Thomas - Last Filed: 08/31/19 17:59> General Exam Limitations: no limitations General appearance: alert, in no apparent distress Head exam: Present: normocephalic Eye exam: Present: normal appearance, PERRL ENT exam: Present: normal oropharynx, TM's normal bilaterally Neck exam: Present: normal inspection. Absent: tenderness, meningismus Respiratory exam: Present: normal lung sounds bilaterally Cardiovascular Exam: Present: regular rate, normal rhythm GI/Abdominal exam: Present: soft. Absent: distended, tenderness, guarding, ange ound, rigid Extremities exam: Present: normal inspection. Absent: pedal edema, calf tenderness Back exam: Present: tenderness (Mild tenderness right lower back below the CVA). Absent: vertebral tenderness Neurological exam: Present: alert Psychiatric exam: Present: normal affect, normal mood Skin exam: Present: normal color <Case Thomas - Last Filed: 08/31/19 17:59> Course <Micah Dolan - Last Filed: 08/31/19 19:02> Vital Signs 08/31/19 08/31/19 15:49 18:00 Temperature 100.1 F H 100.0 F H Pulse Rate 103 H Respiratory 18 Rate Blood Pressure 144/99 115/84 O2 Sat by Pulse 100 Oximetry - Reevaluation(s) Reevaluation #1: 08/31/19 19:01 Medical records reviewed (Micah Dolan) Reevaluation #2: 08/31/19 19:01 Patient informed following results of urinalysis, patient will continue treatment of flu fever control fluid in increased fluid intake. (Micah Dolan) Medical Decision Making - Lab Data Result diagrams: 08/31/19 16:39 08/31/19 16:39 - Radiology Data Radiology results: report reviewed (Ultrasound shows some bladder thickening. No evidence of problem at the kidney.), image reviewed (Chest and abdominal x- rays reveal no acute process) <Case Thomas - Last Filed: 08/31/19 17:59> - Lab Data Result diagrams: 08/31/19 16:39 08/31/19 16:39 - Radiology Data Radiology results: report reviewed, image reviewed <Micah Dolan - Last Filed: 08/31/19 19:02> - Medical Decision Making 39-year-old male DF for evaluation patient has evaluation for fever and Tylenol positive for flu. Patient will continue fever control and oral hydration can be discharged home (Micah Dolan) - Lab Data Lab Results 08/31/19 08/31/19 08/31/19 Range/Units 16:39 16:39 16:39 WBC 5.5 (3.8-10.6) k/uL RBC 5.70 (4.30-5.90) m/uL Hgb 16.9 (13.0-17.5) gm/dL Hct 50.6 (39.0-53.0) % MCV 88.8 (80.0-100.0) fL MCH 29.7 (25.0-35.0) pg MCHC 33.4 (31.0-37.0) g/dL RDW 13.0 (11.5-15.5) % Plt Count 238 (150-450) k/uL Neutrophils % 65 % Lymphocytes % 19 % Monocytes % 7 % Eosinophils % 4 % Basophils % 3 % Neutrophils # 3.5 (1.3-7.7) k/uL Lymphocytes # 1.0 (1.0-4.8) k/uL Monocytes # 0.4 (0-1.0) k/uL Eosinophils # 0.2 (0-0.7) k/uL Basophils # 0.2 (0-0.2) k/uL PT (9.0-12.0) sec INR (<1.2) APTT (22.0-30.0) sec Sodium 139 (137-145) mmol/L Potassium 5.2 H (3.5-5.1) mmol/L Chloride 104 (98-107) mmol/L Carbon Dioxide 23 (22-30) mmol/L Anion Gap 12 mmol/L BUN 14 (9-20) mg/dL Creatinine 0.92 (0.66-1.25) mg/dL Est GFR (CKD-EPI)AfAm >90 (>60 ml/min/1.73 sqM) Est GFR (CKD-EPI)NonAf >90 (>60 ml/min/1.73 sqM) Glucose 89 (74-99) mg/dL Plasma Lactic Acid René (0.7-2.0) mmol/L Calcium 9.1 (8.4-10.2) mg/dL Total Bilirubin 0.6 (0.2-1.3) mg/dL AST 44 (17-59) U/L ALT 35 (4-49) U/L Alkaline Phosphatase 63 (38-126) U/L Total Protein 8.2 (6.3-8.2) g/dL Albumin 4.4 (3.5-5.0) g/dL Urine Color Urine Appearance (Clear) Urine pH (5.0-8.0) Ur Specific [place] (1.001-1.035) Urine Protein (Negative) Urine Glucose (UA) (Negative) Urine Ketones (Negative) Urine Blood (Negative) Urine Nitrite (Negative) Urine Bilirubin (Negative) Urine Urobilinogen (<2.0) mg/dL Ur Leukocyte Esterase (Negative) Urine RBC (0-5) /hpf Urine WBC (0-5) /hpf Ur Squamous Epith Cells (0-4) /hpf Urine Bacteria (None) /hpf Urine Mucus (None) /hpf Influenza Type A RNA Not Detected (Not Detectd) Influenza Type B (PCR) Detected H (Not Detectd) 08/31/19 08/31/19 08/31/19 Range/Units 16:39 16:39 18:14 WBC (3.8-10.6) k/uL RBC (4.30-5.90) m/uL Hgb (13.0-17.5) gm/dL Hct (39.0-53.0) % MCV (80.0-100.0) fL MCH (25.0-35.0) pg MCHC (31.0-37.0) g/dL RDW (11.5-15.5) % Plt Count (150-450) k/uL Neutrophils % % Lymphocytes % % Monocytes % % Eosinophils % % Basophils % % Neutrophils # (1.3-7.7) k/uL Lymphocytes # (1.0-4.8) k/uL Monocytes # (0-1.0) k/uL Eosinophils # (0-0.7) k/uL Basophils # (0-0.2) k/uL PT 9.9 (9.0-12.0) sec INR 0.9 (<1.2) APTT 23.7 (22.0-30.0) sec Sodium (137-145) mmol/L Potassium (3.5-5.1) mmol/L Chloride (98-107) mmol/L Carbon Dioxide (22-30) mmol/L Anion Gap mmol/L BUN (9-20) mg/dL Creatinine (0.66-1.25) mg/dL Est GFR (CKD-EPI)AfAm (>60 ml/min/1.73 sqM) Est GFR (CKD-EPI)NonAf (>60 ml/min/1.73 sqM) Glucose (74-99) mg/dL Plasma Lactic Acid René 1.0 (0.7-2.0) mmol/L Calcium (8.4-10.2) mg/dL Total Bilirubin (0.2-1.3) mg/dL AST (17-59) U/L ALT (4-49) U/L Alkaline Phosphatase (38-126) U/L Total Protein (6.3-8.2) g/dL Albumin (3.5-5.0) g/dL Urine Color Yellow Urine Appearance Clear (Clear) Urine pH 5.5 (5.0-8.0) Ur Specific [place] 1.027 (1.001-1.035) Urine Protein Trace H (Negative) Urine Glucose (UA) Negative (Negative) Urine Ketones Negative (Negative) Urine Blood Trace H (Negative) Urine Nitrite Negative (Negative) Urine Bilirubin Negative (Negative) Urine Urobilinogen <2.0 (<2.0) mg/dL Ur Leukocyte Esterase Negative (Negative) Urine RBC 2 (0-5) /hpf Urine WBC 3 (0-5) /hpf Ur Squamous Epith Cells <1 (0-4) /hpf Urine Bacteria Rare H (None) /hpf Urine Mucus Many H (None) /hpf Influenza Type A RNA (Not Detectd) Influenza Type B (PCR) (Not Detectd) Disposition <Case Thomas - Last Filed: 08/31/19 17:59> Is patient prescribed a controlled substance at d/c from ED?: No <Micah Dolan - Last Filed: 08/31/19 19:02> Clinical Impression: Influenza, Acute upper respiratory infection Disposition: HOME SELF-CARE Condition: Good Instructions (If sedation given, give patient instructions): Influenza (ED) Referrals: None,Stated [Primary Care Provider] - 1-2 days
[2019-08-31] MEDS: SODIUM CHLORIDE 0.9% 500 ML 500 ML IV SCH ×3 (16:41→17:40)
[2019-08-31 16:57] LABS: Basophils # (A) 0.2 k/uL (0-0.2); Basophils % (A) 3 %; Eosinophils # (A) 0.2 k/uL (0-0.7); Eosinophils % (A) 4 %; HCT 50.6 % (39.0-53.0); HGB 16.9 gm/dL (13.0-17.5); Lymphocytes % (A) 19 %; MCH 29.7 pg (25.0-35.0); MCHC 33.4 g/dL (31.0-37.0); MCV 88.8 fL (80.0-100.0); Mean Platelet Volume 8.1; Monocytes # (A) 0.4 k/uL (0-1.0); Monocytes % (A) 7 %; Neutrophils # (A) 3.5 k/uL (1.3-7.7); Neutrophils % (A) 65 %; Platelet Count 238 k/uL (150-450); WBC 5.5 k/uL (3.8-10.6)
--- NOTE | 2019-08-31 17:08 | XR ---
EXAMINATION TYPE: XR abdomen 1V DATE OF EXAM: 08/31/2019 COMPARISON: NONE HISTORY: Flank pain TECHNIQUE: 2 views upright FINDINGS: There is no sign of intestinal obstruction or pneumoperitoneum. Fecal pattern is normal. Th ere is no sign of a mass. IMPRESSION: Nonacute abdomen. No change.
[2019-08-31 17:09] LABS: INR 0.9 (<1.2); Partial Thromboplastin Time 23.7 sec (22.0-30.0); Prothrombin Time 9.9 sec (9.0-12.0)
--- NOTE | 2019-08-31 17:10 | XR ---
EXAMINATION TYPE: XR chest 2V DATE OF EXAM: 08/31/2019 COMPARISON: NONE HISTORY: Fever and flank pain TECHNIQUE: 2 views FINDINGS: Heart and mediastinum are normal. Lungs are clear. Diaphragm is normal. Bony thorax is norm al. Pulmonary vascularity is normal. IMPRESSION: Normal chest. Normal heart.
[2019-08-31 17:14] LABS: ALT 35 U/L (4-49); AST 44 U/L (17-59); African American GFR (CKD) >90 (>60 ml/min/1.73 sqM); Albumin 4.4 g/dL (3.5-5.0); Alkaline Phosphatase 63 U/L (38-126); Anion Gap 12 mmol/L; Blood Urea Nitrogen 14 mg/dL (9-20); Calcium 9.1 mg/dL (8.4-10.2); Carbon Dioxide 23 mmol/L (22-30); Chloride 104 mmol/L (98-107); Glucose 89 mg/dL (74-99); Non-African American GFR(CKD) >90 (>60 ml/min/1.73 sqM); Potassium 5.2 mmol/L (3.5-5.1); Sodium 139 mmol/L (137-145); Total Bilirubin 0.6 mg/dL (0.2-1.3); Total Protein 8.2 g/dL (6.3-8.2)
--- NOTE | 2019-08-31 17:55 | US ---
EXAMINATION TYPE: US kidneys/renal and bladder DATE OF EXAM: 08/31/2019 COMPARISON: NONE CLINICAL HISTORY: fever and flank pain. Fever and flank pain x 4 days. HTN. Hyperlipidemia. Hx [place]. EXAM MEASUREMENTS: Right Kidney: 10.5 x 6.3 x 6.0 cm Left Kidney: 10.2 x 5.4 x 6.5 cm Limited due to body habitus and rib shadow. Right Kidney: No hydronephrosis or masses seen Left Kidney: No hydronephrosis or masses seen Bladder: Appears to be anechoic. Wall appears thickened at 7 mm, but bladder is not fully distended. Bilateral Jets seen: No IMPRESSION: No evidence of renal mass or obstruction. Mild urinary bladder wall thickening could rela te to cystitis..
[2019-08-31 18:46] LABS: Appearance,Urine Clear (Clear); Bacteria,Urine Rare /hpf; Bilirubin,Urine Negative (Negative); Blood,Urine Trace (Negative); Color,Urine Yellow; Glucose,Urine (UA) Negative (Negative); Ketones,Urine Negative (Negative); Leukocyte Esterase,Urine Negative (Negative); Mucus,Urine Many /hpf; Nitrite,Urine Negative (Negative); PH, Urine 5.5 (5.0-8.0); Protein,Urine Trace (Negative); RBC,Urine 2 /hpf (0-5); Specific Gravity,Urine 1.027 (1.001-1.035); Squamous Epithelial Cell,Urine <1 /hpf (0-4); Urobilinogen,Urine <2.0 mg/dL (<2.0); WBC,Urine 3 /hpf (0-5)
[2019-08-31 19:21] VITALS: BP 139/84; PULSE 89; TEMP 98.8
== END 2019-08-31 19:21 | disposition home or self-care (01) ==
LOC: EC 15:44
DX: J11.1 Influenza due to unidentified influenza virus with other respiratory manifestations (principal); I10 Essential (primary) hypertension; I25.2 Old myocardial infarction; Z91.013 Allergy to seafood
CPT/HCPCS: 36415; 71046; 74018; 76770; 80053; 81001; 83605; 85025; 85610; 85730; 87040; 87502; 96360; 96361; 99284

== ENCOUNTER 2020-05-22 00:15 | Emergency (ER) | payer OTHER, BC ==
[2020-05-22] MEDS ORDERED: ORPHENADRINE 30 MG/ML 2 ML VIAL IVP STA (00:45)
[2020-05-22] MEDS ORDERED: KETOROLAC 15 MG/ML 1 ML VIAL IVP STA (00:45)
[2020-05-22 01:01] LABS: Basophils # (A) 0.1 k/uL (0-0.2); Basophils % (A) 1 %; Eosinophils # (A) 0.4 k/uL (0-0.7); Eosinophils % (A) 5 %; HCT 44.4 % (39.0-53.0); HGB 14.5 gm/dL (13.0-17.5); Lymphocytes # (A) 1.5 k/uL (1.0-4.8); Lymphocytes % (A) 16 %; MCH 29.5 pg (25.0-35.0); MCHC 32.6 g/dL (31.0-37.0); MCV 90.8 fL (80.0-100.0); Mean Platelet Volume 6.9; Monocytes # (A) 0.4 k/uL (0-1.0); Monocytes % (A) 4 %; Neutrophils # (A) 6.7 k/uL (1.3-7.7); Neutrophils % (A) 73 %; Platelet Count 265 k/uL (150-450); WBC 9.2 k/uL (3.8-10.6)
[2020-05-22 01:10] LABS: INR 0.9 (<1.2); Prothrombin Time 9.6 sec (9.0-12.0)
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
[2020-05-22] MEDS ORDERED: SODIUM CHLORIDE 0.9% 1,000 ML IV SCH (01:45)
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
[2020-05-22 03:15] VITALS: BP 150/109; PULSE 51; RESP 16; TEMP 98.7
== END 2020-05-22 03:15 | disposition home or self-care (01) ==
LOC: EC 00:15
DX: S46.912A Strain of unspecified muscle, fascia and tendon at shoulder and upper arm level, left arm, initial encounter (principal); S16.1XXA Strain of muscle, fascia and tendon at neck level, initial encounter; K40.90 Unilateral inguinal hernia, without obstruction or gangrene, not specified as recurrent; I25.2 Old myocardial infarction; Z91.013 Allergy to seafood; V89.2XXA Person injured in unspecified motor-vehicle accident, traffic, initial encounter; Y92.410 Unspecified street and highway as the place of occurrence of the external cause
CPT/HCPCS: 36415; 93005; 84484; 85025; 85610; 85730; 73030; 71046; 72125; 70450; 99285; 96374; 96375; 96361; J2360; J1885

== ENCOUNTER 2021-04-25 19:33 | Emergency (ER) | payer BC ==
[2021-04-25 19:40] VITALS: TEMP 98
[2021-04-25 20:06] LABS: Basophils # (A) 0.1 k/uL (0-0.2); Basophils % (A) 1 %; Eosinophils # (A) 0.8 k/uL (0-0.7); Eosinophils % (A) 6 %; HCT 46.1 % (39.0-53.0); Lymphocytes # (A) 1.9 k/uL (1.0-4.8); Lymphocytes % (A) 15 %; MCH 29.8 pg (25.0-35.0); MCHC 32.6 g/dL (31.0-37.0); MCV 91.4 fL (80.0-100.0); Mean Platelet Volume 7.4; Monocytes # (A) 0.5 k/uL (0-1.0); Monocytes % (A) 4 %; Neutrophils # (A) 9.2 k/uL (1.3-7.7); Neutrophils % (A) 72 %; Platelet Count 284 k/uL (150-450); RBC 5.04 m/uL (4.30-5.90); WBC 12.7 k/uL (3.8-10.6)
[2021-04-25 20:15] LABS: Partial Thromboplastin Time 24.6 sec (22.0-30.0); Prothrombin Time 10.3 sec (9.0-12.0)
[2021-04-25 20:17] LABS: ALT 32 U/L (4-49); AST 37 U/L (17-59); African American GFR (CKD) >90 (>60 ml/min/1.73 sqM); Albumin 3.6 g/dL (3.5-5.0); Alkaline Phosphatase 82 U/L (38-126); Anion Gap 7 mmol/L; Blood Urea Nitrogen 11 mg/dL (9-20); Calcium 8.9 mg/dL (8.4-10.2); Carbon Dioxide 22 mmol/L (22-30); Chloride 108 mmol/L (98-107); Glucose 121 mg/dL (74-99); Non-African American GFR(CKD) >90 (>60 ml/min/1.73 sqM); Potassium 4.2 mmol/L (3.5-5.1); Sodium 137 mmol/L (137-145); Total Bilirubin 0.3 mg/dL (0.2-1.3); Total Protein 6.7 g/dL (6.3-8.2)
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
[2021-04-25] MEDS ORDERED: KETOROLAC 15 MG/ML 1 ML VIAL IM STA (21:05)
[2021-04-25] MEDS ORDERED: METOCLOPRAMIDE 10 MG TAB PO STA (21:06)
[2021-04-25] MEDS ORDERED: IPRATROPIUM-ALBUTEROL 3 ML NEB INHALATION STA (21:06)
[2021-04-25] MEDS ORDERED: diphenhydrAMINE 50 MG CAP PO STA (21:06)
[2021-04-25 21:47] VITALS: BP 134/85; PULSE 71; RESP 17
[2021-04-25] MEDS ORDERED: predniSONE 20 MG TAB PO STA (21:51)
--- NOTE | 2021-04-25 21:56 | ED ---
General Adult HPI - General Chief complaint: Upper Respiratory Infection Stated complaint: Chest Pain, Headache Time Seen by Provider: 04/25/21 20:15 Source: patient Mode of arrival: ambulatory Limitations: no limitations - History of Present Illness Initial comments: 20-year-old female presents emergency room with complaint of headache, nasal congestion, productive cough and chest pain with inspiration. Patient reports that he has had symptoms for the past 3 days. Denies any sick contacts with similar symptoms. Did take Tylenol Cold and flu as well as ibuprofen at home. Reports to a low-grade fever. No nausea, vomiting or diarrhea. No abdominal pain. No changes in bowel or bladder habits. No other alleviating, precipitating or modifying factors - Related Data Home Medications Medication Instructions Recorded Confirmed Cpm/PE/Dm/Acetaminophen/Guaifn 1 tab PO Q4-6H PRN 04/25/21 04/25/21 [Tylenol Cold-Flu Day-Nt Caplet] Ibuprofen [Motrin Ib] 400 mg PO Q8H PRN 04/25/21 04/25/21 Previous Rx's Medication Instructions Recorded Albuterol Inhaler [Ventolin Hfa 2 puff INHALATION RT-QID #8 gm 04/25/21 Inhaler] Pseudoephedrine 12Hr [Sudafed 12Hr] 120 mg PO Q12H #20 tab 04/25/21 predniSONE [Deltasone] 20 mg PO BID #10 tab 04/25/21 Allergies Allergy/AdvReac Type Severity Reaction Status Date / Time shellfish derived Allergy Swelling Verified 04/25/21 21:37 Review of Systems ROS Statement: Those systems with pertinent positive or pertinent negative responses have been documented in the HPI. ROS Other: All systems not noted in ROS Statement are negative. Past Medical History Past Medical History: Hyperlipidemia, Hypertension, Myocardial Infarction ([place]) Additional Past Medical History / Comment(s): hypoglycemia, diverticulitis, patient states he had an LA at 24 and one at 30 Last Myocardial Infarction Date:: 01/26/2015? History of Any Multi-Drug Resistant Organisms: None Reported Past Surgical History: No Surgical Hx Reported Past Psychological History: Bipolar, Schizoaffective Disorder, Schizophrenia Smoking Status: Never smoker Past Alcohol Use History: None Reported Past Drug Use History: None Reported General Exam Limitations: no limitations General appearance: alert, in no apparent distress Head exam: Present: atraumatic, normocephalic, normal inspection Eye exam: Present: normal appearance, PERRL, EOMI. Absent: scleral icterus, conjunctival injection, periorbital swelling ENT exam: Present: normal exam, mucous membranes moist Neck exam: Present: normal inspection. Absent: tenderness, meningismus, lymphadenopathy Respiratory exam: Present: normal lung sounds bilaterally, other (bronchospasm). Absent: respiratory distress, wheezes, rales, rhonchi, stridor Cardiovascular Exam: Present: regular rate, normal rhythm, normal heart sounds. Absent: systolic murmur, diastolic murmur, rubs, gallop, clicks GI/Abdominal exam: Present: soft, normal bowel sounds. Absent: distended, tenderness, guarding, rebound, rigid Extremities exam: Present: normal inspection, full ROM, normal capillary refill. Absent: tenderness, pedal edema, joint swelling, calf tenderness Back exam: Present: normal inspection Neurological exam: Present: alert, oriented X3, CN II-XII intact Psychiatric exam: Present: normal affect, normal mood Skin exam: Present: warm, dry, intact, normal color. Absent: rash Course Vital Signs 04/25/21 04/25/21 04/25/21 19:36 21:11 21:21 Temperature 98.0 F Pulse Rate 81 73 81 Respiratory 19 Rate Blood Pressure 151/84 O2 Sat by Pulse 97 Oximetry 04/25/21 21:47 Temperature Pulse Rate 71 Respiratory 17 Rate Blood Pressure 134/85 O2 Sat by Pulse 97 Oximetry EKG Findings - EKG Comments: EKG Findings:: EKG demonstrates normal sinus rhythm with a ventricular rate of 79. WV interval 158. QRS 90. QTC of 394. No acute ST segment elevations or depressions Medical Decision Making - Medical Decision Making Upon arrival patient was placed into room 3. A thorough history and physical exam was performed. EKG was performed. Laboratory studies were conducted. Patient went for a chest x-ray. Laboratory studies are reviewed with blood cell count is 12.7. Cold is not detected. Troponin is negative. Chest x-ray demonstrates no acute intrathoracic process. Results are discussed with the patient. He is given a DuoNeb breathing treatment, 15 mg of IM Toradol and 60 mg of prednisone. Patient will be discharged home with albuterol inhaler as well as prescriptions for Sudafed and prednisone. Patient instructed not to take NSAIDs with the prednisone. He is to follow up with his primary care doctor in 2-4 days. Return to the emergency room for any new or worsening symp toms. Patient agreed to the treatment plan and was discharged home in stable condition - Lab Data Result diagrams: 04/25/21 19:54 04/25/21 19:54 Lab Results 04/25/21 04/25/21 04/25/21 Range/Units 19:54 19:54 19:54 WBC 12.7 H (3.8-10.6) k/uL RBC 5.04 (4.30-5.90) m/uL Hgb 15.0 (13.0-17.5) gm/dL Hct 46.1 (39.0-53.0) % MCV 91.4 (80.0-100.0) fL MCH 29.8 (25.0-35.0) pg MCHC 32.6 (31.0-37.0) g/dL RDW 13.0 (11.5-15.5) % Plt Count 284 (150-450) k/uL MPV 7.4 Neutrophils % 72 % Lymphocytes % 15 % Monocytes % 4 % Eosinophils % 6 % Basophils % 1 % Neutrophils # 9.2 H (1.3-7.7) k/uL Lymphocytes # 1.9 (1.0-4.8) k/uL Monocytes # 0.5 (0-1.0) k/uL Eosinophils # 0.8 H (0-0.7) k/uL Basophils # 0.1 (0-0.2) k/uL PT 10.3 (9.0-12.0) sec INR 1.0 (<1.2) APTT 24.6 (22.0-30.0) sec Sodium 137 (137-145) mmol/L Potassium 4.2 (3.5-5.1) mmol/L Chloride 108 H (98-107) mmol/L Carbon Dioxide 22 (22-30) mmol/L Anion Gap 7 mmol/L BUN 11 (9-20) mg/dL Creatinine 0.82 (0.66-1.25) mg/dL Est GFR (CKD-EPI)AfAm >90 (>60 ml/min/1.73 sqM) Est GFR (CKD-EPI)NonAf >90 (>60 ml/min/1.73 sqM) Glucose 121 H (74-99) mg/dL Calcium 8.9 (8.4-10.2) mg/dL Total Bilirubin 0.3 (0.2-1.3) mg/dL AST 37 (17-59) U/L ALT 32 (4-49) U/L Alkaline Phosphatase 82 (38-126) U/L Troponin I (0.000-0.034) ng/mL Total Protein 6.7 (6.3-8.2) g/dL Albumin 3.6 (3.5-5.0) g/dL Coronavirus (PCR) (Not Detectd) 04/25/21 04/25/21 Range/Units 19:54 19:54 WBC (3.8-10.6) k/uL RBC (4.30-5.90) m/uL Hgb (13.0-17.5) gm/dL Hct (39.0-53.0) % MCV (80.0-100.0) fL MCH (25.0-35.0) pg MCHC (31.0-37.0) g/dL RDW (11.5-15.5) % Plt Count (150-450) k/uL MPV Neutrophils % % Lymphocytes % % Monocytes % % Eosinophils % % Basophils % % Neutrophils # (1.3-7.7) k/uL Lymphocytes # (1.0-4.8) k/uL Monocytes # (0-1.0) k/uL Eosinophils # (0-0.7) k/uL Basophils # (0-0.2) k/uL PT (9.0-12.0) sec INR (<1.2) APTT (22.0-30.0) sec Sodium (137-145) mmol/L Potassium (3.5-5.1) mmol/L Chloride (98-107) mmol/L Carbon Dioxide (22-30) mmol/L Anion Gap mmol/L BUN (9-20) mg/dL Creatinine (0.66-1.25) mg/dL Est GFR (CKD-EPI)AfAm (>60 ml/min/1.73 sqM) Est GFR (CKD-EPI)NonAf (>60 ml/min/1.73 sqM) Glucose (74-99) mg/dL Calcium (8.4-10.2) mg/dL Total Bilirubin (0.2-1.3) mg/dL AST (17-59) U/L ALT (4-49) U/L Alkaline Phosphatase (38-126) U/L Troponin I <0.012 (0.000-0.034) ng/mL Total Protein (6.3-8.2) g/dL Albumin (3.5-5.0) g/dL Coronavirus (PCR) Not Detected (Not Detectd) Disposition Clinical Impression: Cough, Nasal congestion, Bronchospasm Disposition: HOME SELF-CARE Condition: Stable Instructions (If sedation given, give patient instructions): Upper Respiratory Infection (ED) Additional Instructions: Please follow up with your PCP in 2-4 days. Return to the ED for any new or worsening symptoms. Prescriptions: predniSONE [Deltasone] 20 mg PO BID #10 tab Pseudoephedrine 12Hr [Sudafed 12Hr] 120 mg PO Q12H #20 tab Albuterol Inhaler [Ventolin Hfa Inhaler] 2 puff INHALATION RT-QID #8 gm Is patient prescribed a controlled substance at d/c from ED?: No Referrals: Minh Greene MD [Primary Care Provider] - 1-2 days Time of Disposition: 21:56
== END 2021-04-25 22:09 | disposition home or self-care (01) ==
LOC: EC 19:33
DX: J98.01 Acute bronchospasm (principal); R51.9 Headache, unspecified; I25.2 Old myocardial infarction; I10 Essential (primary) hypertension; R50.9 Fever, unspecified; Z20.822 Contact with and (suspected) exposure to COVID-19; Z91.013 Allergy to seafood
CPT/HCPCS: 36415; 94640; 93005; 80053; 84484; 85025; 85610; 85730; 87635; 71046; 99285; 96372; J1885; J7512

== ENCOUNTER 2021-07-03 08:42 | Emergency (ER) | payer BC ==
[2021-07-03 08:46] VITALS: BP 142/100; PULSE 70; RESP 18; TEMP 97.9
--- NOTE | 2021-07-03 09:12 | ED ---
General Adult HPI - General Chief complaint: Fever Stated complaint: N/V/D, bodyaches Time Seen by Provider: 07/03/21 08:53 Source: patient Mode of arrival: ambulatory Limitations: no limitations - History of Present Illness Initial comments: 1-year-old male with a past medical history of hyperlipidemia, hypertension, [place] presents to the emergency room for a chief he went to work today and his temperature was 100. States he was having nausea vomiting diarrhea and so they sent him home as they were concerned for COVID-19 and wanted him to get tested. Patient also admits to bodyaches. Patient is any other symptoms.Patient has no other complaints at this time including shortness of breath, chest pain, abdominal pain, headache, or visual changes. - Related Data Home Medications Medication Instructions Recorded Confirmed Cpm/PE/Dm/Acetaminophen/Guaifn 1 tab PO Q4-6H PRN 04/25/21 04/25/21 [Tylenol Cold-Flu Day-Nt Caplet] Ibuprofen [Motrin Ib] 400 mg PO Q8H PRN 04/25/21 04/25/21 Previous Rx's Medication Instructions Recorded Albuterol Inhaler [Ventolin Hfa 2 puff INHALATION RT-QID #8 gm 04/25/21 Inhaler] Pseudoephedrine 12Hr [Sudafed 12Hr] 120 mg PO Q12H #20 tab 04/25/21 predniSONE [Deltasone] 20 mg PO BID #10 tab 04/25/21 Allergies Allergy/AdvReac Type Severity Reaction Status Date / Time shellfish derived Allergy Swelling Verified 07/03/21 08:46 Review of Systems ROS Statement: Those systems with pertinent positive or pertinent negative responses have been documented in the HPI. ROS Other: All systems not noted in ROS Statement are negative. Past Medical History Past Medical History: Hyperlipidemia, Hypertension, Myocardial Infarction (AK) Additional Past Medical History / Comment(s): hypoglycemia, diverticulitis, patient states he had an AK at 24 and one at 30 Last Myocardial Infarction Date:: 01/26/2015? History of Any Multi-Drug Resistant Organisms: None Reported Past Surgical History: No Surgical Hx Reported Past Psychological History: Bipolar, Schizoaffective Disorder, Schizophrenia Smoking Status: Never smoker Past Alcohol Use History: None Reported Past Drug Use History: None Reported General Exam Limitations: no limitations General appearance: alert, in no apparent distress Head exam: Present: atraumatic Eye exam: Present: normal appearance, PERRL, EOMI. Absent: scleral icterus, conjunctival injection ENT exam: Present: normal exam, mucous membranes moist Neck exam: Present: normal inspection, full ROM. Absent: tenderness Respiratory exam: Present: normal lung sounds bilaterally. Absent: respiratory distress, wheezes Cardiovascular Exam: Present: regular rate, normal rhythm, normal heart sounds GI/Abdominal exam: Present: soft, normal bowel sounds. Absent: distended, tenderness Neurological exam: Present: alert Course Vital Signs 07/03/21 08:43 Temperature 97.9 F Pulse Rate 70 Respiratory 18 Rate Blood Pressure 142/100 O2 Sat by Pulse 100 Oximetry Medical Decision Making - Medical Decision Making vitals stable. Patient is well-appearing. No abdominal tenderness. No other complaints. COVID-19 is negative. At this time patient likely has a viral enteritis. Recommend he monitor his symptoms and he should be retested for COVID-19 in the next several days. If he has any worsening symptoms he will return to the emergency room. - Lab Data Lab Results 07/03/21 Range/Units 08:50 Coronavirus (PCR) Not Detected (Not Detectd) Disposition Clinical Impression: Diarrhea Disposition: HOME SELF-CARE Condition: Good Instructions (If sedation given, give patient instructions): Acute Diarrhea (ED), Fever in Adults (ED) Additional Instructions: Take Motrin and Tylenol for fever. Get retested for COVID-19 in the next few days. Follow-up with your doctor. Drink plenty of fluids. Return to the emergency room for any worsening symptoms. Is patient prescribed a controlled substance at d/c from ED?: No Referrals: Minh Greene MD [Primary Care Provider] - 1-2 days Time of Disposition: 09:24
== END 2021-07-03 09:37 | disposition home or self-care (01) ==
LOC: EC 08:42
DX: R11.2 Nausea with vomiting, unspecified (principal); R19.7 Diarrhea, unspecified; R50.9 Fever, unspecified; I10 Essential (primary) hypertension; I25.2 Old myocardial infarction; Z91.013 Allergy to seafood; Z20.822 Contact with and (suspected) exposure to COVID-19
CPT/HCPCS: 87635; 99284

== ENCOUNTER 2022-03-05 17:04 | Emergency (ER) | payer BC ==
[2022-03-05] MEDS ORDERED: ACETAMINOPHEN TAB 500 MG TAB PO STA (18:42)
[2022-03-05 19:24] VITALS: RESP 16
[2022-03-05 20:18] LABS: Basophils # (A) 0.1 k/uL (0-0.2); Basophils % (A) 1 %; Eosinophils # (A) 0.3 k/uL (0-0.7); Eosinophils % (A) 5 %; HGB 15.5 gm/dL (13.0-17.5); Lymphocytes # (A) 0.4 k/uL (1.0-4.8); Lymphocytes % (A) 5 %; MCH 31.3 pg (25.0-35.0); MCHC 33.7 g/dL (31.0-37.0); MCV 92.7 fL (80.0-100.0); Mean Platelet Volume 7.3; Monocytes # (A) 0.5 k/uL (0-1.0); Monocytes % (A) 7 %; Neutrophils # (A) 5.9 k/uL (1.3-7.7); Neutrophils % (A) 80 %; Platelet Count 222 k/uL (150-450); RBC 4.96 m/uL (4.30-5.90); RDW 13.3 % (11.5-15.5); WBC 7.3 k/uL (3.8-10.6)
[2022-03-05] MEDS ORDERED: SODIUM CHLORIDE 0.9% 1,000 ML IV STA (20:18)
[2022-03-05] MEDS ORDERED: ONDANSETRON 4 MG/2 ML VIAL IVP STA (20:20)
[2022-03-05 20:29] LABS: Albumin 4.5 g/dL (3.5-5.0); Calcium 9.1 mg/dL (8.4-10.2); Potassium 4.8 mmol/L (3.5-5.1); Total Bilirubin 0.4 mg/dL (0.2-1.3); Total Protein 7.8 g/dL (6.3-8.2)
[2022-03-05] MEDS ORDERED: KETOROLAC 15 MG/ML 1 ML VIAL IVP STA (20:35)
[2022-03-05 20:37] LABS: VBG PH 7.36 (7.31-7.41)
--- NOTE | 2022-03-05 20:52 | ED ---
Fall HPI - General Chief Complaint: Fall Stated Complaint: overheated at work Time Seen by Provider: 03/05/22 18:41 Source: patient, family, RN notes reviewed Mode of arrival: ambulatory - History of Present Illness Initial Comments: This is a 41-year-old male who presents to the emergency department for a fall and heat exhaustion. 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 He started to feel very ill and subsequently passed out. When he fell, he hit the back of his head on a machine at work. States that he currently has pain to the back of his head, nausea, and numbness in the bilateral upper extremities. He has worked in hot conditions before, however he has never had a problem or passed out. Denies any fevers, chills, sore throat, cough, dyspnea, chest pain, palpitations, abdominal pain, vomiting, diarrhea, or back pain. MD Complaint: fall Place Fall Occurred: work Loss of Consciousness: yes Prolonged Down Time?: no Context: other (heat exhaustion) - Related Data Home Medications Medication Instructions Recorded Confirmed Cpm/PE/Dm/Acetaminophen/Guaifn 1 tab PO Q4-6H PRN 04/25/21 04/25/21 [Tylenol Cold-Flu Day-Nt Caplet] Ibuprofen [Motrin Ib] 400 mg PO Q8H PRN 04/25/21 04/25/21 Previous Rx's Medication Instructions Recorded Albuterol Inhaler [Ventolin Hfa 2 puff INHALATION RT-QID #8 gm 04/25/21 Inhaler] Pseudoephedrine 12Hr [Sudafed 12Hr] 120 mg PO Q12H #20 tab 04/25/21 predniSONE [Deltasone] 20 mg PO BID #10 tab 04/25/21 Ondansetron Odt [Zofran Odt] 4 mg PO Q8HR PRN #15 tab 03/05/22 Allergies Allergy/AdvReac Type Severity Reaction Status Date / Time shellfish derived Allergy Swelling Verified 03/05/22 17:24 Review of Systems ROS Statement: Those systems with pertinent positive or pertinent negative responses have been documented in the HPI. ROS Other: All systems not noted in ROS Statement are negative. Past Medical History Past Medical History: Hyperlipidemia, Hypertension, Myocardial Infarction ([place]) Additional Past Medical History / Comment(s): hypoglycemia, diverticulitis, patient states he had an AL at 24 and one at 30 Last Myocardial Infarction Date:: 01/26/2015? History of Any Multi-Drug Resistant Organisms: None Reported Past Surgical History: No Surgical Hx Reported Past Psychological History: Bipolar, Schizoaffective Disorder, Schizophrenia Smoking Status: Never smoker Past Alcohol Use History: None Reported Past Drug Use History: None Reported General Exam Limitations: no limitations General appearance: alert, in distress Head exam: Present: atraumatic, normocephalic, normal inspection Respiratory exam: Present: normal lung sounds bilaterally. Absent: respiratory distress, wheezes, rales, rhonchi, stridor Cardiovascular Exam: Present: regular rate, normal rhythm, normal heart sounds. Absent: systolic murmur, diastolic murmur, rubs, gallop, clicks Neurological exam: Present: alert, oriented X3, CN II-XII intact Psychiatric exam: Present: normal affect, normal mood Skin exam: Present: warm, dry, intact, normal color. Absent: rash Course Vital Signs 03/05/22 03/05/22 03/05/22 17:20 19:23 20:31 Temperature 101.7 F H 100.4 F H 100.7 F H Pulse Rate 102 H 92 Respiratory 18 16 Rate Blood Pressure 147/80 152/88 O2 Sat by Pulse 98 98 Oximetry 03/05/22 22:24 Temperature 99.1 F Pulse Rate 65 Respiratory 16 Rate Blood Pressure 113/64 O2 Sat by Pulse 96 Oximetry Medical Decision Making - Medical Decision Making This is a 41-year-old male who presents to the emergency department for heat exhaustion. Lab work was nonactionable. Patient was febrile on presentation. He was treated with IV fluids, Zofran, Toradol, and Tylenol. Patient noted improvement following medication administration. Computed tomography scan of the brain was obtained revealing no acute irregularities. Patient feels significantly improved and stable for discharge home. Prescription for Zofran as well as starter pack provided. Advised him to remain well-hydrated and try to take plenty of breaks during work and to find cool areas when possible. We also discussed possibly bringing fans or other cooling materials to work. Return precautions reviewed in depth, the patient is instructed to return to the emergency department with any new, worsening, or concerning symptoms. Patient verbalized understanding. This case was discussed in detail with the attending ED physician. Presentation, findings, and treatment plan discussed in detail as well. - Lab Data Result diagrams: 03/05/22 20:12 03/05/22 20:12 Lab Results 03/05/22 03/05/22 03/05/22 Range/Units 20:12 20:12 20:22 WBC 7.3 (3.8-10.6) k/uL RBC 4.96 (4.30-5.90) m/uL Hgb 15.5 (13.0-17.5) gm/dL Hct 46.0 (39.0-53.0) % MCV 92.7 (80.0-100.0) fL MCH 31.3 (25.0-35.0) pg MCHC 33.7 (31.0-37.0) g/dL RDW 13.3 (11.5-15.5) % Plt Count 222 (150-450) k/uL MPV 7.3 Neutrophils % 80 % Lymphocytes % 5 % Monocytes % 7 % Eosinophils % 5 % Basophils % 1 % Neutrophils # 5.9 (1.3-7.7) k/uL Lymphocytes # 0.4 L (1.0-4.8) k/uL Monocytes # 0.5 (0-1.0) k/uL Eosinophils # 0.3 (0-0.7) k/uL Basophils # 0.1 (0-0.2) k/uL VBG pH 7.36 (7.31-7.41) VBG pCO2 49 (37-51) mmHg VBG HCO3 27 (24-28) mmol/L Sodium 138 (137-145) mmol/L Potassium 4.8 (3.5-5.1) mmol/L Chloride 102 (98-107) mmol/L Carbon Dioxide 28 (22-30) mmol/L Anion Gap 8 mmol/L BUN 11 (9-20) mg/dL Creatinine 1.21 (0.66-1.25) mg/dL Est GFR (CKD-EPI)AfAm 85 (>60 ml/min/1.73 sqM) Est GFR (CKD-EPI)NonAf 74 (>60 ml/min/1.73 sqM) Glucose 101 H (74-99) mg/dL Calcium 9.1 (8.4-10.2) mg/dL Total Bilirubin 0.4 (0.2-1.3) mg/dL AST 48 (17-59) U/L ALT 50 H (4-49) U/L Alkaline Phosphatase 81 (38-126) U/L Creatine Kinase 425 H (55-170) U/L Total Protein 7.8 (6.3-8.2) g/dL Albumin 4.5 (3.5-5.0) g/dL Urine Color Urine Appearance (Clear) Urine pH (5.0-8.0) Ur Specific [place] (1.001-1.035) Urine Protein (Negative) Urine Glucose (UA) (Negative) Urine Ketones (Negative) Urine Blood (Negative) Urine Nitrite (Negative) Urine Bilirubin (Negative) Urine Urobilinogen (<2.0) mg/dL Ur Leukocyte Esterase (Negative) Urine RBC (0-5) /hpf Urine WBC (0-5) /hpf Amorphous Sediment (None) /hpf Urine Mucus (None) /hpf 03/05/22 Range/Units 22:28 WBC (3.8-10.6) k/uL RBC (4.30-5.90) m/uL Hgb (13.0-17.5) gm/dL Hct (39.0-53.0) % MCV (80.0-100.0) fL MCH (25.0-35.0) pg MCHC (31.0-37.0) g/dL RDW (11.5-15.5) % Plt Count (150-450) k/uL MPV Neutrophils % % Lymphocytes % % Monocytes % % Eosinophils % % Basophils % % Neutrophils # (1.3-7.7) k/uL Lymphocytes # (1.0-4.8) k/uL Monocytes # (0-1.0) k/uL Eosinophils # (0-0.7) k/uL Basophils # (0-0.2) k/uL VBG pH (7.31-7.41) VBG pCO2 (37-51) mmHg VBG HCO3 (24-28) mmol/L Sodium (137-145) mmol/L Potassium (3.5-5.1) mmol/L Chloride (98-107) mmol/L Carbon Dioxide (22-30) mmol/L Anion Gap mmol/L BUN (9-20) mg/dL Creatinine (0.66-1.25) mg/dL Est GFR (CKD-EPI)AfAm (>60 ml/min/1.73 sqM) Est GFR (CKD-EPI)NonAf (>60 ml/min/1.73 sqM) Glucose (74-99) mg/dL Calcium (8.4-10.2) mg/dL Total Bilirubin (0.2-1.3) mg/dL AST (17-59) U/L ALT (4-49) U/L Alkaline Phosphatase (38-126) U/L Creatine Kinase (55-170) U/L Total Protein (6.3-8.2) g/dL Albumin (3.5-5.0) g/dL Urine Color Yellow Urine Appearance Cloudy (Clear) Urine pH 8.0 (5.0-8.0) Ur Specific [place] 1.024 (1.001-1.035) Urine Protein Trace H (Negative) Urine Glucose (UA) Negative (Negative) Urine Ketones Negative (Negative) Urine Blood Negative (Negative) Urine Nitrite Negative (Negative) Urine Bilirubin Negative (Negative) Urine Urobilinogen <2.0 (<2.0) mg/dL Ur Leukocyte Esterase Negative (Negative) Urine RBC 9 H (0-5) /hpf Urine WBC 1 (0-5) /hpf Amorphous Sediment Rare H (None) /hpf Urine Mucus Occasional H (None) /hpf - Radiology Data Radiology results: report reviewed, image reviewed Disposition Clinical Impression: Heat exhaustion, Syncope Disposition: HOME SELF-CARE Instructions (If sedation given, give patient instructions): Heat Exhaustion (ED) Additional Instructions: Return to the emergency department with any new, worsening, or concerning sy mptoms. Take the Zofran as needed up to every 8 hours for nausea and vomiting. Make sure that you remain well-hydrated. Prescriptions: Ondansetron Odt [Zofran Odt] 4 mg PO Q8HR PRN #15 tab PRN Reason: Nausea And Vomiting Is patient prescribed a controlled substance at d/c from ED?: No Referrals: Minh Greene MD [Primary Care Provider] - 1-2 days
--- NOTE | 2022-03-05 21:26 | CT ---
EXAMINATION TYPE: CT brain wo con CT DLP: 1137.4 mGycm, Automated exposure control for dose reduction was used. DATE OF EXAM: 03/05/2022 9:15 PM COMPARISON: CT brain 05/22/2020 CLINICAL INDICATION:Male, 41 years old with history of Head injury, normal mental status, weakness, o mariaa heated, head TECHNIQUE: Brain: Axial CT images of the brain were obtained with coronal and sagittal reformats created and rev iewed. Contrast used: None. Oral contrast used: None. FINDINGS: Brain: Extra-axial spaces: No abnormal extra-axial fluid collections. Ventricular system: Within normal limits Cerebral parenchyma: No acute intraparenchymal hemorrhage or mass effect. The guthrie-white junction is well differentiated. Cerebellum: Unremarkable. Mass effect: No evidence of midline shift. Intracranial vasculature: unremarkable Soft tissues: Normal. Calvarium/osseous structures: No depressed skull fracture. Paranasal sinuses and mastoid air cells: Mild scattered paranasal sinus disease. Visualized orbits: Orbital contents are intact. IMPRESSION: No acute intracranial process.
[2022-03-05 22:29] VITALS: BP 113/64; PULSE 65; TEMP 99.1
[2022-03-05] MEDS ORDERED: ONDANSETRON 4 MG ODT STARTER PACK 2 TAB BTL PO STA (22:30)
[2022-03-05 22:50] LABS: Amorphous Sediment,Urine Rare /hpf; Appearance,Urine Cloudy (Clear); Bilirubin,Urine Negative (Negative); Blood,Urine Negative (Negative); Color,Urine Yellow; Glucose,Urine (UA) Negative (Negative); Ketones,Urine Negative (Negative); Leukocyte Esterase,Urine Negative (Negative); Mucus,Urine Occasional /hpf; Nitrite,Urine Negative (Negative); Protein,Urine Trace (Negative); RBC,Urine 9 /hpf (0-5); Specific Gravity,Urine 1.024 (1.001-1.035); Urobilinogen,Urine <2.0 mg/dL (<2.0); WBC,Urine 1 /hpf (0-5)
== END 2022-03-05 22:43 | disposition home or self-care (01) ==
LOC: EC 17:04
DX: T67.5XXA Heat exhaustion, unspecified, initial encounter (principal); R55 Syncope and collapse; E78.5 Hyperlipidemia, unspecified; I10 Essential (primary) hypertension; I25.2 Old myocardial infarction; F25.9 Schizoaffective disorder, unspecified; Z91.013 Allergy to seafood; W01.111A Fall on same level from slipping, tripping and stumbling with subsequent striking against power tool or machine, initial encounter; Y99.0 Civilian activity done for income or pay; Y92.89 Other specified places as the place of occurrence of the external cause
CPT/HCPCS: 36415; 80053; 82550; 82803; 85025; 81001; 70450; 99284; 96374; 96375; 96361 ×2; J2405; J1885; S0119

== ENCOUNTER 2025-01-13 17:59 | Emergency (ER) | payer SELFPAY ==
--- NOTE | 2025-01-13 18:07 | ED ---
General Adult HPI - General Chief complaint: Nausea/Vomiting/Diarrhea Stated complaint: Vomiting Time Seen by Provider: 01/13/25 18:07 Source: patient, RN notes reviewed Mode of arrival: ambulatory Limitations: no limitations - History of Present Illness Initial comments: 44-year-old male presented to the ER for evaluation of esophageal foreign body. Patient states he was eating steak approximately an hour and a half prior to arrival. He states he believes a piece of steak is stuck in his throat. He has attempted drinking water and soda without relief of sensation. He states he is unable to tolerate his own saliva as he has to "spit it out". He denies difficulty breathing. He states he typically is able to pass blockage with wate r and soda but states this is the first time he has had to present to the ER for this. He denies history of EGD or esophageal strictures. No other complaints. - Related Data Home Medications Medication Instructions Recorded Confirmed Cpm/PE/Dm/Acetaminophen/Guaifn 1 tab PO Q4-6H PRN 04/25/21 04/25/21 [Tylenol Cold-Flu Day-Nt Caplet] Ibuprofen [Motrin Ib] 400 mg PO Q8H PRN 04/25/21 04/25/21 Previous Rx's Medication Instructions Recorded Albuterol Inhaler [Ventolin Hfa 2 puff INHALATION RT-QID #8 gm 04/25/21 Inhaler] Pseudoephedrine 12Hr [Sudafed 12Hr] 120 mg PO Q12H #20 tab 04/25/21 predniSONE [Deltasone] 20 mg PO BID #10 tab 04/25/21 Ondansetron Odt [Zofran Odt] 4 mg PO Q8HR PRN #15 tab 03/05/22 Allergies Allergy/AdvReac Type Severity Reaction Status Date / Time shellfish derived Allergy Swelling Verified 01/13/25 18:05 Review of Systems ROS Statement: Those systems with pertinent positive or pertinent negative responses have been documented in the HPI. ROS Other: All systems not noted in ROS Statement are negative. Past Medical History Past Medical History: Hyperlipidemia, Hypertension, Myocardial Infarction (KS) Additional Past Medical History / Comment(s): hypoglycemia, diverticulitis, patient states he had an KS at 24 and one at 30 Last Myocardial Infarction Date:: 01/26/2015? History of Any Multi-Drug Resistant Organisms: None Reported Past Surgical History: No Surgical Hx Reported Past Psychological History: Bipolar, Schizoaffective Disorder, Schizophrenia Smoking Status: Never smoker Past Alcohol Use History: None Reported Past Drug Use History: None Reported General Exam Limitations: no limitations General appearance: alert, in no apparent distress ENT exam: Present: normal oropharynx, mucous membranes moist, other (Patient spitting up saliva after attempting to swallow) Neck exam: Present: normal inspection. Absent: tenderness, meningismus, lymphadenopathy Respiratory exam: Present: normal lung sounds bilaterally. Absent: respiratory distress, wheezes, rales, rhonchi, stridor Cardiovascular Exam: Present: regular rate, normal rhythm, normal heart sounds. Absent: systolic murmur, diastolic murmur, rubs, gallop, clicks Neurological exam: Present: alert, oriented X3, CN II-XII intact Skin exam: Present: warm, dry, intact, normal color. Absent: rash Course Vital Signs 01/13/25 01/13/25 01/13/25 18:03 19:08 19:24 Temperature 97.7 F 98.2 F Pulse Rate 68 84 76 Respiratory 18 20 19 Rate Blood Pressure 157/100 126/85 131/90 O2 Sat by Pulse 98 97 96 Oximetry - Reevaluation(s) Reevaluation #1: 01/13/25 19:13 Case discussed with Phill Jade, GI specialist, who accepts transfer. Accepting physician, Dr. Constantino. Medical Decision Making - Medical Decision Making Was pt. sent in by a medical professional or institution (, PA, ASSISTANT PROFESSOR OF ECONOMICS, urgent care, hospital, or halfway...) When possible be specific @ -No Did you speak to anyone other than the patient for history (EMS, parent, family, police, friend...)? What history was obtained from this source @ -No Did you review nursing and triage notes (agree or disagree)? Why? @ -I reviewed and agree with nursing and triage notes Were old charts reviewed (outside hosp., previous admission, EMS record, old EKG, old radiological studies, urgent care reports/EKG's, halfway records)? Report findings @ -No old charts were reviewed Differential Diagnosis (chest pain, altered mental status, abdominal pain women, abdominal pain men, vaginal bleeding, weakness, fever, dyspnea, syncope, headache, dizziness, GI bleed, back pain, seizure, CVA, palpatations, mental hea lth, musculoskeletal)? @ -Esophageal foreign body, esophageal stricture, GERD, aspiration... This was adopted to be all-inclusive EKG interpreted by me (3pts min.). @ -None done X-rays interpreted by me (1pt min.). @ -None done CT interpreted by me (1pt min.). @ -None done U/S interpreted by me (1pt. min.). @ -None done What testing was considered but not performed or refused? (CT, X-rays, U/S, labs)? Why? @ -None What meds were considered but not given or refused? Why? @ -None Did you discuss the management of the patient with other professionals (professionals i.e. , PA, ASSISTANT PROFESSOR OF ECONOMICS, lab, RT, psych nurse, social security benefits interviewer, card cleaner, teacher, corporation officer, caser up)? Give summary @ -Case discussed with Phill PICKENS, Dr. Constantino, who excepts transfer. Was smoking cessation discussed for >3mins.? @ -No Was critical care preformed (if so, how long)? @ -No Were there social determinants of health that impacted care today? How? (Homelessness, low income, unemployed, alcoholism, drug addiction, transportation, low edu. Level, literacy, decrease access to med. care, penitentiary, rehab)? @ -No Was there de-escalation of care discussed even if they declined (Discuss DNR or withdrawal of care, Hospice)? DNR status @ -No What co-morbidities impacted this encounter? (DM, HTN, Smoking, COPD, CAD, Cancer, CVA, ARF, Chemo, Hep., AIDS, mental health diagnosis, sleep apnea, morbid obesity)? @ -None Was patient admitted / discharged? Hospital course, mention meds given and route, prescriptions, significant lab abnormalities, going to OR and other pertinent info. @ -Transferred. 44-year-old male presented the ER for evaluation of possible esophageal foreign body. Vital signs stable. Patient no signs of acute respiratory distress. Patient unable to tolerate saliva or liquids as he immediately throws it up. Patient provided with IV glucagon and Ativan and instructed to drink carbonated beverage to aid with passage, this was unsuccessful. I then instructed patient to continuously jump up and down this was also unsuccessful. Patient unable to tolerate liquids and immediately throws up consumed amount. As we do not have GI specialist for EGD evaluation, Phill Jade, Dr. Constantino, was contacted and accepted transfer. Patient states he does not have someone to drive him down to [facility] and does not feel comfortable himself. Patient is requesting EMS transportation to [facility] for further evaluation. Patient transported via EMS in stable condition to [facility] for further evaluation and treatment. Case discussed with ED attending of Dr. Mckay. Undiagnosed new problem with uncertain prognosis? @ -No Drug Therapy requiring intensive monitoring for toxicity (Heparin, Nitro, Insulin, Cardizem)? @ -No Were any procedures done? @ -No Diagnosis/symptom? @ -Rule out esophageal food bolus vs. esophageal stricture Acute, or Chronic, or Acute on Chronic? @ -Acute Uncomplicated (without systemic symptoms) or Complicated (systemic symptoms)? @ -Complicated Side effects of treatment? @ -No Exacerbation, Progression, or Severe Exacerbation? @ -No Poses a threat to life or bodily function? How? (Chest pain, [place], KS, pneumonia, PE, COPD, DKA, ARF, appy, cholecystitis, CVA, Diverticulitis, Homicidal, Suicidal, threat to staff... and all critical care pts) @ -Possibly, patient cannot tolerate oral intake Disposition Clinical Impression: Esophageal foreign body Disposition: OTHER INSTITUTION NOT DEFINED Condition: Stable Referrals: Minh Greene MD [Primary Care Provider] - 1-2 days Time of Disposition: 19:13 - Out of Hospital Transfer - Req. Specs Out of Hospital Transfer - Requested Specifics: Other Emergency Center ([facility])
[2025-01-13] MEDS: LORazepam 1 MG/0.5 ML VIAL IV STA (18:29)
[2025-01-13] MEDS: GLUCAGON 1 MG/ML VIAL IVP STA (18:31)
[2025-01-13 19:29] VITALS: BP 131/90; PULSE 76; RESP 19; TEMP 98.2
== END 2025-01-13 20:04 | disposition other institution (70) ==
LOC: EC 17:59
DX: T18.108A Unspecified foreign body in esophagus causing other injury, initial encounter (principal); Z91.013 Allergy to seafood
CPT/HCPCS: 99284; 96374; 96375; J2060; J1610